=== PATIENT | female | born 1930 | race Caucasian/White ===

== ENCOUNTER 2016-07-19 17:38 | Inpatient (IN) | payer OTHER ==
[~2016-07-19] VITALS: Ht 167.6 cm; Wt 86.2 kg
--- NOTE | 2016-07-19 18:08 | ED DYSPNEA/ASTHMA COMPLAINT ---
History of Present Illness General Chief Complaint: Upper Respiratory Sx/Fever Stated Complaint: COUGHING, WALDRON, FEVER X1WEEK, REQUESTING CHEST XRAY Source: patient, family, old records Exam Limitations: no limitations Allergies Coded Allergies: NO KNOWN ALLERGIES (11/27/10) Triage Note: PT TO ED FOR "BRONCHITIS" FOR THE PAST WEEK, C/O NON-PRODUCTIVE COUGH, SUBJECTIVE FEVER AND RUNNY NOSE. Triage Nurses Notes Reviewed? yes Onset: Gradual Duration: week(s): (1), constant Timing: recent history Severity: mild Activities at Onset: none Prior Episodes/Possible Cause: occasional episodes Associated Symptoms: cough HPI: 85 Year old female with history of copd hypertension presents to the ER for evaluation complaining of a cough for the past 7 days intermittent wheezing. She is not on home O2. She denies fevers however reports to subjective chills. No chest pain no dizziness lightheadedness. Positive sick contact with similar symptoms. She was placed on Levaquin last week by Dr. Ramos however her cough persists. She states was initially productive of green sputum however is nonproductive now no abdominal pain nausea vomiting or diarrhea. No modifying factors or associated symptoms (CATHI MORFIN) Reconcile Medications Albuterol Sulfate (Proair Hfa) 90 MCG HFA.AER.AD 2 PUF INH Q4-6 PRN PRN copd Amlodipine Besylate 5 MG TABLET 1 TAB PO DAILY HIGH BP (Reported) Budesonide/Formoterol Fumarate (Symbicort 160-4.5 Mcg Inhaler) 160 MCG-4.5 MCG/ ACTUATION HFA.AER.AD 2 PUF INH BID copd Cefuroxime Axetil (Cefuroxime) 250 MG TABLET 1 TAB PO Q12 bronchitis Codeine Phosphate/Guaifenesi (Guaifenesin AC Cough Syrup) 10 MG-100 MG/5 ML LIQUID 10 ML PO Q6P PRN COUGH Lansoprazole 30 MG CAPSULE. 1 CAP PO DAILY GERD (Reported) Lisinopril 40 MG TABLET 1 TAB PO DAILY HIGH BP (Reported) Prednisone 10 MG TABLET 1 TAB PO SI copd take 4pills for 2days 3pills for 2days 2pills for 2days take 1pill for 2days then stop prednisone Tiotropium Clovis (Spiriva) 18 MCG CAP.W.DEV 1 CAP INH DAILY copd (KAREN ORTEGA) Vital Signs & Intake/Output Vital Signs & Intake/Output ED Intake and Output 07/24 0000 07/23 1200 Intake Total 500 200 Output Total Balance 500 200 Intake, Oral 500 200 Number 1 Bowel Movements Patient 190 lb Weight Past History Travel History Traveled to [place] past 21 day No Medical History Any Pertinent Medical History? 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 No (CATHI MORFIN) Review of Systems Review of Systems Constitutional: Reports: see HPI. All Other Systems: Reviewed and Negative Comments Review of systems: See HPI, All other systems negative. Constitutional, no chills no fever, no malaise HEENT: no sore throat congestion Cardiovascular: No chest pain , no palpitation Skin: no rashes, no change in skin Respiratory: No dyspnea cough no sputum GI: No nausea no vomiting, no diarrhea, : No dysuria Muscle skeletal: No joint pain, no back pain, no neck pain, Neurologic: No numbness no headache Psych: No stress Heme/endocrine: No bruising Immunology: No lymphadenopathy (CATHI MORFIN) Physical Exam Physical Exam General Appearance: well developed/nourished, alert, awake Respiratory: normal breath sounds Comments: Well-developed well-nourished patient in no apparent distress. Head/Face: Atraumatic, no maxillary/frontal sinus tenderness, no facial swelling Eyes: PERRL, EOMI, Ear:External auditory canal and Tympanic membranes clear, no erythema, no FB. Nose: atraumatic.Normal inspection Throat: Moist mucous membranes.Pharynx normal. No pharyngeal erythema/exudate seen. No stridor/drooling or assymetry. No swelling or edema. Neck: Supple, no lymphadenopathy, FROM Back: FROM Cardiovascular: Regular rate and rhythms no murmurs rubs Respiratory: Chest nontender.There were no bony deformities, no asymmetry. No respiratory distress. Patient speaking in full complete sentences. Breath sounds clear to auscultation bilaterally: NO W/R/R Extremities: full range of motion Neuro: awake, alert, and oriented to person, place and time. There were no obvious focal neurologic abnormalities. Skin: Warm & dry;No appreciable rash on exposed skin Psych: Mood affect normal, normal memory normal judgment. Core Measures ACS in differential dx? No Severe Sepsis Present: No Septic Shock Present: No (CATHI MORFIN) Progress Differential Diagnosis: AMI, bronchitis, costochondritis, CHF, COPD, musculoskeletal pain, pericarditis, pulmonary embolism, pneumonia, pneumothorax, unstable angina Diagnostic Imaging: Viewed by Me: Radiology Read. Discussed w/RAD: Radiology Read. Initial ED EKG: none Hand-Off Endorsed To: KAREN ORTEGA Endorsed Time: 1856 Pending: Xray (CATHI MORFIN) Initial ED EKG: normal sinus rhythm, rate (99), RBBB, nonspecific ST T wave chg (KAREN ORTEGA) Plan of Care: Orders Procedure Date/time Status Regular Diet 07/20 B Active TROPONIN LEVEL 07/20 0830 Active EKG 07/20 0830 Active CBC WITHOUT DIFFERENTIAL 07/20 0600 Complete BASIC ELECTROLYTES PLUS BUN&CR 07/20 0600 Complete TROPONIN LEVEL 07/20 0230 Complete EKG 07/20 0230 Active Teach/Educate 07/20 0135 Active Pain Treatment and Response 07/20 0135 Active Nutritional Intake, Monitor 07/20 0135 Active Isolation 07/20 0135 Active Patient Care Conference 07/20 0135 Active Activity/Ambulation 07/20 0135 Active Code Status 07/20 0045 Active US-RENAL/KIDNEY 07/20 0044 Active RAPID VIRAL INFLUENZA A 07/19 2344 Complete CULTURE,URINE 07/19 2344 Active LOWER RESPIRATORY CULTURE 07/19 2344 Active BLOOD CULTURE 07/19 2344 Active Misc Message 07/19 2338 Active ED Holding Orders 07/19 2338 Active EKG 07/19 2338 Active Code Status 07/19 2338 Complete URINALYSIS 07/19 2305 Complete TRC EVALUATION (GEN) 07/19 2302 Active Pathway - chart 07/19 230 Active House Staff 07/19 2302 Active Patient Data 07/19 230 Active Admit to inpatient 07/19 2222 Active Patient Data 07/19 2159 Active TROPONIN LEVEL 07/19 2001 Complete COMPREHENSIVE METABOLIC PANEL 07/19 2001 Complete CBC WITHOUT DIFFERENTIAL 07/19 2001 Complete EKG 07/19 2001 Active VTE Mechanical Prophylaxis 07/19 UNK Active Vital Signs 07/19 UNK Active MISTAKE 07/19 UNK Active Telemetry/Career Services Coordinator 07/19 UNK Active Intake & Output 07/19 UNK Active Current Medications Sig/Haroon Start time Last Medication Dose Stop Time Status Admin Azithromycin 500 MG DAILY 07/20 1000 AC (Zithromax) Sodium Chloride 250 ML (Normal Saline 0.9%) Enoxaparin Sodium 30 MG DAILY 07/20 1000 AC (Lovenox) Methylprednisolone 40 MG Q12 07/20 1000 AC (Solumedrol) Acetaminophen 650 MG Q6P PRN 07/19 2300 AC (Tylenol) Acetaminophen 1,000 MG Q6P PRN 07/19 2300 AC (Ofirmev) Morphine Sulfate 0.5 MG Q4P PRN 07/19 2300 AC (Morphine) Laboratory Tests 07/20/16 0255: Troponin I < 0.01 07/20/16 0255: Anion Gap 13, Estimated GFR > 60, BUN/Creatinine Ratio 22.9, CBC w Diff NO MAN DIFF REQ, RBC 4.66, MCV 83.4, MCH 28.1, RDW 14.9 H, MPV 8.4, Gran % 92.7 H, Lymphocytes % 6.8 L, Monocytes % 0.4 L, Eosinophils % 0.1, Basophils % 0 L, Absolute Granulocytes 7.8 H, Absolute Lymphocytes 0.6 L, Absolute Monocytes 0 L, Absolute Eosinophils 0, Absolute Basophils 0, PUBS MCHC 33.7 07/19/16 2323: Urinalysis LIGHT H, Urine Color YEL, Urine Clarity HAZY H, Urine pH 6.0, Ur Specific Robinson >= 1.030, Urine Protein NEG, Urine Ketones NEG, Urine Nitrite NEG, Urine Bilirubin NEG, Urine Urobilinogen 0.2, Ur Leukocyte Esterase NEG, Ur Microscopic SEDIMENT EXAMINED, Urine RBC 1-3, Urine WBC 1-3 H, Ur Epithelial Cells MOD H, Urine Bacteria FEW H, Urine Mucus MOD H, Urine Hemoglobin NEG, Urine Glucose NEG 07/19/162039: Anion Gap 12, Estimated GFR > 60, BUN/Creatinine Ratio 21.3, Glucose 111 H, Calcium 9.4, Total Bilirubin 0.5, AST 24, ALT 36, Alkaline Phosphatase 87, Troponin I < 0.01, Total Protein 7.4, Albumin 4.4, Globulin 3.0, Albumin/ Globulin Ratio 1.5, CBC w Diff NO MAN DIFF REQ, RBC 4.80, MCV 84.1, MCH 28.3, RDW 14.7 H, MPV 8.3, Gran % 63.7, Lymphocytes % 27.3, Monocytes % 6.4, Eosinophils % 2.1, Basophils % 0.5, Absolute Granulocytes 5.8, Absolute Lymphocytes 2.5, Absolute Monocytes 0.6, Absolute Eosinophils 0.2, Absolute Basophils 0, PUBS MCHC 33.7 Microbiology 07/20 025 BLOOD: Blood Culture - RECD 07/20 254 BLOOD: Blood Culture - RECD 07/20 003 NASOPHARYN: Influenza Virus A & B Rapid Smear - COMP 07/20 2343 LOWER RESP: Respiratory Culture - COLB 07/20 2343 LOWER RESP: Gram Stain - COLB 07/19 232 URINE ROUT: Urine Culture - RECD PT is declining all treatments other then xray including labs. case d/w dr fredy Kwon ordered CASE D.W AND SIGNED OUT TO SANDHYA RADER PENDING XRAY PATIENT: GODWIN AKERS PRESENT AGE: 85 PATIENT ACCOUNT NO: [id number] : 32 LOCATION: [facility] ORDERING PHYSICIAN: CATHI ARTHUR SERVICE DATE: 07/19/16 EXAM TYPE: RAD - XRY-CHEST XRAY, PA AND LATERAL EXAMINATION: XR CHEST CLINICAL INFORMATION: Cough, pneumonia. COMPARISON: Prior chest December 2015. TECHNIQUE: Two views of the chest were obtained. FINDINGS: Minimal bibasilar opacities most likely reflects atelectasis. Lungs otherwise clear. Minimal apical pleural thickening unchanged. The cardiac silhouette, mediastinum and pulmonary vascularity are normal. Bone and soft tissues, unremarkable. IMPRESSION: 1. No acute disease. 2. Bibasilar linear opacities likely atelectasis. 3. Biapical pleural scarring, unchanged. DICTATED BY: NAEEM GALLOWAY MD DATE/TIME DICTATED:07/19/161840 HEAD PAPER TESTER:CISCO DATE/TIME TRANSCRIBED:07/19/161840 CONFIDENTIAL, DO NOT COPY WITHOUT APPROPRIATE AUTHORIZATION. <Electronically signed in Other Vendor System> SIGNED BY: NAEEM GALLOWAY MD 07/19 (CATHI MORFIN) Departure Departure Condition: Stable Referrals: KARL SHORT,VILLA Vaca (PCP/Family) Additional Instructions: CONTINUE THE LEVAQUIN. TAKE THE MEDROL DOSE JESUS MANUEL YOU HAVE AT HOME. FOLLOW UP WITH DR BARAJAS THIS WEEK. RETURN AT ANYTIME SOONER IF YOUR SYMPTOMS WORSEN, YOU DEVELOP WORSENING FEVER, CHILLS DESPITE MEDICATION, SHORTNESS OF BREATH OR ANY OTHER CONCERNS Departure Forms: Customer Survey General Discharge Information (CATHI MORFIN) Departure Disposition: STILL A PATIENT Clinical Impression Primary Impression: COPD exacerbation Secondary Impressions: Acute electrocardiogram changes, Hypoxia Prescriptions: Current Visit Scripts Cefuroxime Axetil (Cefuroxime) 1 TAB PO Q12 #4 Prednisone 1 TAB PO SI #20 TAB take 4pills for 2days 3pills for 2days 2pills for 2days take 1pill for 2days then stop prednisone Budesonide/Formoterol Fumarate (Symbicort 160-4.5 Mcg Inhaler) 2 PUF INH BID #1 INHAL Tiotropium Clovis (Spiriva) 1 CAP INH DAILY #30 CAP Albuterol Sulfate (Proair Hfa) 2 PUF INH Q4-6 PRN PRN copd #1 INHAL Codeine Phosphate/Guaifenesi (Guaifenesin AC Cough Syrup) 10 ML PO Q6P PRN COUGH #1 Admission Note Spoke With: VILLA BARAJAS MD. Documentation of Exam: Documentation of any treatments & extenuating circumstances including Concerns Regarding Discharge (functional status, medication knowledge or non-compliance, living conditions, etc.) that warrant an admission rather than observation: Patient has a new right bundle-branch block. O2 saturation in high 80s on room air. Short of breath still. Patient will require serial breathing treatments. Supplemental oxygen. IV steroids. Cardiac telemetry. Cardiac consultation. Pulmonary consult. (KAREN ORTEGA) PA/MANAGER OF CREATIVE SERVICES Co-Sign Statement Statement: ED Attending supervision documentation- [x] I saw and evaluated the patient. I have also reviewed all the pertinent lab results and diagnostic results. I agree with the findings and the plan of care as documented in the PA's/MANAGER OF CREATIVE SERVICES's documentation. Worsening shortness of breath over the past week despite antibiotics. [] I have reviewed the ED Record and agree with the PA's/MANAGER OF CREATIVE SERVICES's documentation. [] Additions or exceptions (if any) to the PAs/MANAGER OF CREATIVE SERVICES's note and plan are summarized below: [] (JOSUE SHORT,DAVEY Garcia) Critical Care Note Critical Care Note Critical Care Time: non-applicable (LIT ARTHUR,CATHI)
--- NOTE | 2016-07-19 19:07 | RADIOLOGY REPORT ---
EXAMINATION: XR CHEST CLINICAL INFORMATION: Cough, pneumonia. COMPARISON: Prior chest December 2015. TECHNIQUE: Two views of the chest were obtained. FINDINGS: Minimal bibasilar opacities most likely reflects atelectasis. Lungs otherwise clear. Minimal apical pleural thickening unchanged. The cardiac silhouette, mediastinum and pulmonary vascularity are normal. Bone and soft tissues, unremarkable. IMPRESSION: 1. No acute disease. 2. Bibasilar linear opacities likely atelectasis. 3. Biapical pleural scarring, unchanged.
[2016-07-19 20:50] LABS: ABSOLUTE BASOPHIL COUNT 0 /CUMM (0.0-0.2); ABSOLUTE EOSINOPHIL COUNT 0.2 /CUMM (0.0-0.7); ABSOLUTE GRANULOCYTE CT 5.8 /CUMM (1.4-6.5); ABSOLUTE LYMPH COUNT 2.5 /CUMM (1.2-3.4); ABSOLUTE MONOCYTE COUNT 0.6 /CUMM (0.10-0.60); BASOPHIL % 0.5 % (0.0-2.0); EOSINOPHIL % 2.1 % (0-5); GRANULOCYTE % 63.7 % (42.2-75.2); HEMATOCRIT 40.4 % (37-47); MEAN CORPUSCULAR HGB 28.3 PG (27.0-31.0); MEAN CORPUSCULAR HGB CONC 33.7 G/DL (33.0-37.0); MEAN CORPUSCULAR VOLUME 84.1 FL (81.0-99.0); MEAN PLATELET VOLUME 8.3 FL (7.4-10.4); PLATELET COUNT 199 /CUMM (130-400); RBC DISTRIBUTION WIDTH 14.7 % (11.5-14.5); WHITE BLOOD CELL COUNT 9.1 /CUMM (4.8-10.8)
--- NOTE | 2016-07-19 23:39 | History & Physical ---
BEE SHORT,[facility] 07/19/16 7308: General Information and HPI MD Statement: I have seen and personally examined GODWIN AKERS and documented this H&P. The patient is a 85 year old F who presented with a patient stated chief complaint of [coughing, fever and chills, malaise]. Source of Information: patient Exam Limitations: no limitations History of Present Illness: Patient is a 85 year-old lady with PMH of HTN, emphysema, arthritis, GERD who has come to the ED after 7 days of constant and worsening upper respiratory symptoms and weakness. Patient was in her usual state until 7 days ago on Monday when she started to have coughing, wheezing and runny nose, as she said, 'like a faucet'. Coughing became worse the next day and the patient also started to experience fever and chills and generalized weakness and malaise, to the extent that she had a hard time getting up from the chair. On Monday (07/15/16) patient went to Dr. Carlson office and was diagnosed with bronchitis and started on Levaquin and was recommended to come to the ED if symptoms did not improve. Patient called Dr. Carlson office today as her symptoms had gotten worse, she was advised to come to the ED and get a CXR. Patient reports dizziness off and on, myalgia, excessive coughing and sputum production (with greenish phlegm), denies any sick contacts, has received flu shot as well as pneumovax this year. Patient always has SOB on exertion, which is not worsened, denies SOB at rest, denies orthopnea and lower extremity swelling. does not take oxygen at home, was a former smoker and quit in 1997 ( smoke for 40 years up to 2-3 packs/day). She follows up with Dr. Christensen for her emphysema and reports that she was started on Breo recently. Does not take Spiriva any more. Denies chest pain, palpitation, headache, vision changes, denies changes in bowel habits or abdominal pain, denies urine changes, has urinary urgency and follow up with Dr. Hendrix, she is off of any medication for her overactive bladder. Patient generally does not drink much water but drinks a lot of coffee and tea. She also sees Dr. Mosley, last time about a year ago and a stress test was performed and was normal. She also sees Dr. Gonzalez, GI, Dr. Mondragon (for a femoral fx), Dr. Pérez and [place] for osteoarthritis and back pain. 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 Ambulation: cane Review of Systems Review of Systems Constitutional: Reports: chills, fever, weakness. EENTM: Reports: nasal congestion. Denies: visual changes. Cardiovascular: Denies: chest pain, palpitations, peripheral edema. Respiratory: Reports: cough, short of breath, sputum production, wheezing. Denies: orthopnea , stridor. GI: Denies: abdominal pain, diarrhea, nausea, bloody stool, changes in stool, vomiting. Genitourinary: Reports: frequency, urgency. Denies: dysuria. Musculoskeletal: Reports: back pain, joint pain. Skin: Reports: no symptoms. Neurological/Psychological: Reports: no symptoms. Hematologic/Endocrine: Reports: no symptoms. Exam & Diagnostic Data Last 24 Hrs of Vital Signs/I&O Vital Signs Date Time Temp Pulse Resp B/P B/P Pulse O2 O2 Flow FiO2 Mean Ox Delivery Rate 07/20 0038 96.4 89 18 128/65 90 Nasal 5.0L Cannula 07/19 2032 97.9 105 16 174/78 96 Nasal 2.0L Cannula 07/19 1915 90 07/19 1800 98.8 103 20 147/86 92 Room Air Intake & Output 07/20 0800 07/20 0000 07/19 1600 Intake Total Output Total Balance Patient 86.183 kg Weight Weight Reported by Patient Measurement Method Physical Exam General Appearance Alert, Oriented X3, Cooperative, No Acute Distress Skin No Significant Lesion Skin Temp/Moisture Exam: Warm/Dry Sepsis Skin Exam (color): Normal for Ethnicity HEENT Atraumatic, EOMI, Mucous Membr. moist/pink Neck Supple Cardiovascular Regular Rate, Normal S1, Normal S2, No Murmurs Lungs Normal Air Movement, decreased breath sounds, no wheezing or rhonchi appreciated Abdomen Normal Bowel Sounds, Soft, there is LUQ, suprapubic, RUQ and RLQ pain and tenderness, villalobos sign is negative, there is left side CVA tenderness Neurological Normal Speech, Strength at 5/5 X4 Ext, Normal Tone, Sensation Intact, Cranial Nerves 3-12 NL Extremities No Edema, Normal Pulses Vascular Normal Pulses, Pulses Symmetrical Last 24 Hrs of Labs/Bayron: Laboratory Tests 07/19/163: Urinalysis LIGHT H, Urine Color YEL, Urine Clarity HAZY H, Urine pH 6.0, Ur Specific [place] >= 1.030, Urine Protein NEG, Urine Ketones NEG, Urine Nitrite NEG, Urine Bilirubin NEG, Urine Urobilinogen 0.2, Ur Leukocyte Esterase NEG, Ur Microscopic SEDIMENT EXAMINED, Urine RBC 1-3, Urine WBC 1-3 H, Ur Epithelial Cells MOD H, Urine Bacteria FEW H, Urine Mucus MOD H, Urine Hemoglobin NEG, Urine Glucose NEG 07/19/162039: Anion Gap 12, Estimated GFR > 60, BUN/Creatinine Ratio 21.3, Glucose 111 H, Calcium 9.4, Total Bilirubin 0.5, AST 24, ALT 36, Alkaline Phosphatase 87, Troponin I < 0.01, Total Protein 7.4, Albumin 4.4, Globulin 3.0, Albumin/ Globulin Ratio 1.5, CBC w Diff NO MAN DIFF REQ, RBC 4.80, MCV 84.1, MCH 28.3, RDW 14.7 H, MPV 8.3, Gran % 63.7, Lymphocytes % 27.3, Monocytes % 6.4, Eosinophils % 2.1, Basophils % 0.5, Absolute Granulocytes 5.8, Absolute Lymphocytes 2.5, Absolute Monocytes 0.6, Absolute Eosinophils 0.2, Absolute Basophils 0, PUBS MCHC 33.7 Microbiology 07/20 0035 NASOPHARYN: Influenza Virus A & B Rapid Smear - COMP 07/20 2343 LOWER RESP: Respiratory Culture - ORD 07/20 2343 LOWER RESP: Gram Stain - ORD 05/16 2344 BLOOD: Blood Culture - ORD 07/19 2344 BLOOD: Blood Culture - ORD 07/19 2323 URINE ROUT: Urine Culture - RECD Diagnostic Data EKG Results sinus tachycardia, new right bundle branch block, T wave inversions in precordial leads (V2-V6) CXR Results SERVICE DATE: 07/19/16 EXAM TYPE: RAD - XRY-CHEST XRAY, PA AND LATERAL EXAMINATION: XR CHEST CLINICAL INFORMATION: Cough, pneumonia. COMPARISON: Prior chest December 2015. TECHNIQUE: Two views of the chest were obtained. FINDINGS: Minimal bibasilar opacities most likely reflects atelectasis. Lungs otherwise clear. Minimal apical pleural thickening unchanged. The cardiac silhouette, mediastinum and pulmonary vascularity are normal. Bone and soft tissues, unremarkable. IMPRESSION: 1. No acute disease. 2. Bibasilar linear opacities likely atelectasis. 3. Biapical pleural scarring, unchanged. DICTATED BY: NAEEM GALLOWAY MD DATE/TIME DICTATED:07/19/161840 RICE DRYER MECHANIC:CISCO DATE/TIME TRANSCRIBED:07/19/161840 Assessment/Plan Assessment: Patient is a 85 year-old lady with PMH of HTN, emphysema, arthritis, GERD who has come to the ED after 7 days of constant, worsening upper respiratory symptoms and generalized weakness. Patient is found to have some new findings in the EKG including new RBBB and T wave inversions in precordial leads (V2-V6). Patient is admitted to telemetry for close monitoring and to rule out arrhythmias. CXR: No acute disease. Bibasilar linear opacities likely atelectasis. Biapical pleural scarring. Lab: CBC and electrolytes within normal limits, troponin <0.01 Problem list and plan: Upper respiratory tract infection CXR Bibasilar linear opacities likely atelectasis. Flue test negative for Influenza A&B. No fever and leukocytosis. Patient has a history of emphysema, not on home O2 (takes Breo at home). * O2 supplementation as needed to keep SO2>92% * TRC/Nebs * IV solumedrol 40 mg Q12 * Azithromycin 500 mg IV * Sputum culture and blood culture New EKG changes EKG revealed new RBBB, denies any chest pain and palpitation, troponin <0.01 * Serial troponin and EKG * Continuous EKG monitoring * Consider cardiology consultation Possible UTI/kidney stone Has CVA tenderness, UA is negative, currently afebrile, normal WBC count * Urine culture sent, will follow * Kidney ultrasound ordered, will follow History of HTN * continue lisinopril, amlodipine History of GERD * continue lansoprazole mild pain pathway DVT px Lovenox SC Diet regular FC As Ranked By This Provider Problem List: 1. GERD 2. Emphysema of lung 3. Essential hypertension 4. Osteoarthritis 5. Bronchitis Core Measures/Miscellaneous Acute Coronary Syndrome ACS Diagnosis: No Cerebrovascular Accident CVA/TIA Diagnosis: No Congestive Heart Failure CHF Diagnosis: No Venous Thromboembolism VTE Risk Factors: Acute medical illness, Age > 40 No [facility] VTE prophylaxis d/t: VTE low risk, No contraindications No VTE Pharm Prophylaxis d/t: VTE low risk, No contraindications VTE Diagnosis: No VTE Type: NONE VTE Confirmed by (Test): NONE Severe Sepsis Severe Sepsis Present: No Septic Shock Septic Shock Present: No Miscellaneous Documentation Attending Case [facility]ed [facility] Primary Care Physician: VILLA CARLSON MD Patient sees these Specialists Dr. Dimitri Black Level of Patient Care: Telemetry VIOLETASinanTINO 07/19/16 2340: General Information and HPI MD Statement: I have seen and personally examined GODWIN AKERS and documented this H&P. The patient is a 85 year old F who presented with a patient stated chief complaint of [COUGH,COLD,URI]. Source of Information: patient Exam Limitations: no limitations Allergies/Medications Home Med list Albuterol Sulfate (Proair Hfa) 90 MCG HFA.AER.AD 2 PUF INH Q4-6 PRN PRN copd Amlodipine Besylate 5 MG TABLET 1 TAB PO DAILY HIGH BP (Reported) Budesonide/Formoterol Fumarate (Symbicort 160-4.5 Mcg Inhaler) 160 MCG-4.5 MCG/ ACTUATION HFA.AER.AD 2 PUF INH BID copd Cefuroxime Axetil (Cefuroxime) 250 MG TABLET 1 TAB PO Q12 bronchitis Codeine Phosphate/Guaifenesi (Guaifenesin AC Cough Syrup) 10 MG-100 MG/5 ML LIQUID 10 ML PO Q6P PRN COUGH Lansoprazole 30 MG CAPSULE. 1 CAP PO DAILY GERD (Reported) Lisinopril 40 MG TABLET 1 TAB PO DAILY HIGH BP (Reported) Prednisone 10 MG TABLET 1 TAB PO SI copd take 4pills for 2days 3pills for 2days 2pills for 2days take 1pill for 2days then stop prednisone Tiotropium [place] (Spiriva) 18 MCG CAP.W.DEV 1 CAP INH DAILY copd Past Family/Social History Psychosocial History Where do you live? Home Core Measures/Miscellaneous Acute Coronary Syndrome ACS Diagnosis: No Cerebrovascular Accident CVA/TIA Diagnosis: No Congestive Heart Failure CHF Diagnosis: No Venous Thromboembolism VTE Risk Factors: Age > 40 No [facility] VTE prophylaxis d/t: No contraindications No VTE Pharm Prophylaxis d/t: No contraindications VTE Diagnosis: No VTE Type: NONE VTE Confirmed by (Test): NONE Miscellaneous Documentation Attending Case Discussed With: DR MILES Primary Care Physician: KARL SHORT,VILLA [place] Resident Review Statement Resident Statement: examined this patient, discussed with process engineering intern, agreed with process engineering intern Other Findings: This is a 85-year-old female previous smoker, nonalcoholic, no illicit drug use with past medical history of hypertension, hyperlipidemia, COPD (emphysema) not on home oxygen, GERD, osteoarthritis,?RA,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 The the patient was doing fine when one week prior to admission she started experiencing productive cough with greenish sputum, subjective headaches on and off, dizziness and lightheadedness along with chills and myalgia. She thought that this might improve on its own, she tried taking some [id number] Tylenol however the symptoms continued to worsen and therefore she saw her primary care Dr. Lemons's who prescribed her seven days of levofloxacin on , continued to take the antibiotic as prescribed however her symptoms did not improve and she continued to feel worse, before she called Dr. Lemons's office again and she was asked to come to the emergency department for a chest x-ray. She denied any nausea, vomiting, diarrhea, abdominal pain, she does have urinary frequency and has hyperactive bladder for which she has been seeing Dr. Hendrix however denied any urinary complaints other than that. She follows up with Dr. Christensen as her sap senior developer, Dr. Black as a investigative analyst and she also sees Dr. Gerard pérez. At the emergency department she was noted to have Tmax of 97.9, pulse of 103, respiration of 16-20, her blood pressure was systolic ranging from 147-174, diastolic 78-86. PE : She was alert orientated to time place and person, not in any acute distress. HEENT atraumatic, no sinus tenderness, no facial swelling, but equal and reactive to the right. Throat : essentially had normal pharynx no erythema or exudate noted, moist mucous membranes. CVS : regular rate and rhythm no murmur. RS : bilateral air entry equal, no adventitious sounds. Pa : Soft, mild tenderness noted in the right quadrant on deep palpation, positive CVA tenderness on the left side, I'll sounds present. Extremities: noncyanotic no edema or cyanosis. Neurologic: Nonfocal. Skin : warm and dry, no rash ulcer or erythema. Relevant Labs : Count of 9.1, H/H of 13.6/40.4, platelets 199. lytes within normal limit, normal kidney functions, normal liver functions, troponin less than 0.01. CXR did not show any acute disease, by basilar linear opacities likely atelectasis, previous pleural scarring present and unchanged from previous x- ray. EKG showed normal sinus rhythm, sinus tachycardia at rate of 109, UT of 164, QTC of 475, new right bundle branch block not present on the previous EKG. She received one time of 125 mg of Solu-Medrol at the emergency department 1 dose of IV Zithromax and, she was placed on 2 L of nasal cannula at home she does not use oxygen. Patient failed Levaquin as OP and symptoms did not improve. Problem list along with assessment and plan. #1 upper respiratory tract-like infection. #2 new right bundle branch block. #3 positive CVA tenderness, negative UA. #4 history of hypertension. #5 history of hyperlipidemia. #6 history of GERD #7 H/o COPD Her URI like symptoms looks to be viral in origin, the secretions are more watery, she does have mild sputum production however it has reduced from before it's green in color, she does not sound very congested in her chest.She does have underlying emphysema and she becomes breathless even by climbing few steps which is her baseline, there is no worsening of shortness of breath from her baseline however due to underlying COPD we will continue IV Solu-Medrol 40 every 12. * Continue azithromycin for its anti-inflammatory effect. * Continue monitor vitals, continue to follow sputum cultures blood cultures and urine cultures. * Patient was complaining of CVA tenderness. * UA is not positive, however we will get a kidney ultrasound in a.m. to rule out any infection. * EKG revealed new right bundle been parched, initial set of troponin was negative, patient does not have any chest pain or any palpitations. * we will trend ekg and troponin * Continue lisinopril and amlodipine for her hypertension from a.m. * Continue lansoprazole for GERd * Ct azithromycin for its anti-inflammatory effect. * Follow rapid flu. * Ct TRC/ Nebulisations. FC Mild, moderate and severe pain pathway Regular diet. DVt px lovenox. GINGER SHORT,KELLY 07/20/16 0956: Attending MD Review Statement Attending Statement Attending MD Statement: examined this patient, discuss w/resident/PA/BUS DRIVER/MONITOR, agreed w/resident/PA/BUS DRIVER/MONITOR, reviewed EMR data (avail)
[2016-07-19] MEDS ORDERED: LANSOPRAZOLE30 M2 PO (23:48)
[2016-07-19] MEDS ORDERED: LISINOPRIL40 M1 PO (23:48)
[2016-07-19] MEDS ORDERED: AMLODIPINE BESYL5 M1 PO (23:49)
[2016-07-20 01:16] VITALS: BP 132/70
[2016-07-20 03:15] LABS: ABSOLUTE BASOPHIL COUNT 0 /CUMM (0.0-0.2); ABSOLUTE EOSINOPHIL COUNT 0 /CUMM (0.0-0.7); ABSOLUTE GRANULOCYTE CT 7.8 /CUMM (1.4-6.5); ABSOLUTE LYMPH COUNT 0.6 /CUMM (1.2-3.4); ABSOLUTE MONOCYTE COUNT 0 /CUMM (0.10-0.60); BASOPHIL % 0 % (0.0-2.0); EOSINOPHIL % 0.1 % (0-5); GRANULOCYTE % 92.7 % (42.2-75.2); HEMATOCRIT 38.9 % (37-47); MEAN CORPUSCULAR HGB 28.1 PG (27.0-31.0); MEAN CORPUSCULAR HGB CONC 33.7 G/DL (33.0-37.0); MEAN CORPUSCULAR VOLUME 83.4 FL (81.0-99.0); MEAN PLATELET VOLUME 8.4 FL (7.4-10.4); PLATELET COUNT 194 /CUMM (130-400); RBC DISTRIBUTION WIDTH 14.9 % (11.5-14.5); RED BLOOD CELL CT 4.66 /CUMM (4.20-5.40); WHITE BLOOD CELL COUNT 8.4 /CUMM (4.8-10.8)
--- NOTE | 2016-07-20 06:58 | PN- Housestaff ---
Subjective Follow-up For: COPD exacerbation New onset RBBB Tele-Events Since Last Visit: NSR with rate in 80-90s Subjective: Patient seen and examined at bedside. Resting comfortably in chair. Alert, awake and oriented x 3. Endorses cough and shortness of breath but improving. Denies any chest pain, palpitations, lightheadedness, dizziness, abdominal pain, n/v/c/ d. No events reported overnight. Review of Systems Constitutional: Reports: see HPI, chills. Objective Last 24 Hrs of Vital Signs/I&O Vital Signs Date Time Temp Pulse Resp B/P B/P Pulse O2 O2 Flow FiO2 Mean Ox Delivery Rate 07/20 0800 98.7 96 20 138/84 94 Nasal 5.0L Cannula 07/20 0209 Nasal 5.0L Cannula 07/20 0116 97.2 98 18 132/70 94 Nasal Cannula 07/20 0038 96.4 89 18 128/65 90 Nasal 5.0L Cannula 07/19 2033 97.9 105 16 174/78 96 Nasal 2.0L Cannula 07/19 1915 90 07/19 1800 98.8 103 20 147/86 92 Room Air Intake & Output 07/20 1600 07/20 0800 07/20 0000 Intake Total Output Total Balance Patient 86.183 kg Weight Weight Reported by Patient Measurement Method Physical Exam General Appearance: Alert, Oriented X3, Cooperative, No Acute Distress Other Physical Findings: Skin No Significant Lesion Skin Temp/Moisture Exam: Warm/Dry Sepsis Skin Exam (color): Normal for Ethnicity HEENT Atraumatic, EOMI, Mucous Membr. moist/pink Neck Supple Cardiovascular Regular Rate, Normal S1, Normal S2, No Murmurs Lungs Normal Air Movement, decreased breath sounds, no wheezing or rhonchi appreciated Abdomen Normal Bowel Sounds, Soft, there is LUQ, suprapubic, RUQ and RLQ pain and tenderness, villalobos sign is negative, there is left side CVA tenderness Neurological Normal Speech, Strength at 5/5 X4 Ext, Normal Tone, Sensation Intact, Cranial Nerves 3-12 NL Extremities No Edema, Normal Pulses Vascular Normal Pulses, Pulses Symmetrical Current Medications: Current Medications Sig/Haroon Start time Last Medication Dose Route Stop Time Status Admin Acetaminophen 650 MG Q6P PRN 07/19 2300 AC PO Acetaminophen 1,000 MG Q6P PRN 07/19 2300 AC IV Albuterol Sulfate 3 ML ONCE ONE 07/19 2014 DC 07/19 INH 07/19 Albuterol Sulfate 3 ML ONCE ONE 07/19 184 DC 07/19 INH 07/19 1845 191 Azithromycin 500 MG 2200 07/20 2200 AC Sodium Chloride 250 ML IV Azithromycin 500 MG DAILY 07/20 1000 DC Sodium Chloride 250 ML IV Azithromycin 500 MG ONCE ONE 07/19 2130 DC 07/19 PO 07/19 2130 2226 Enoxaparin Sodium 30 MG DAILY 07/20 1000 AC 07/20 SC 0927 Ipratropium [place] 2.5 ML ONCE ONE 07/19 1845 DC 07/19 INH 07/19 1845 191 Methylprednisolone 40 MG Q12 07/20 1000 AC 07/20 IV 0927 Methylprednisolone 0 .STK-MED ONE 07/19 2048 DC .ROUTE Methylprednisolone 125 MG ONCE ONE 07/19 2014 DC 07/19 IV 07/19 Morphine Sulfate 0.5 MG Q4P PRN 07/19 230 AC IV Last 24 Hrs of Lab/Bayron Results Last 24 Hrs of Labs/Mics: Laboratory Tests 07/20/16 1025: Troponin I Pending 07/20/16 0255: Troponin I < 0.01 07/20/16 0255: Anion Gap 13, Estimated GFR > 60, BUN/Creatinine Ratio 22.9, CBC w Diff NO MAN DIFF REQ, RBC 4.66, MCV 83.4, MCH 28.1, RDW 14.9 H, MPV 8.4, Gran % 92.7 H, Lymphocytes % 6.8 L, Monocytes % 0.4 L, Eosinophils % 0.1, Basophils % 0 L, Absolute Granulocytes 7.8 H, Absolute Lymphocytes 0.6 L, Absolute Monocytes 0 L, Absolute Eosinophils 0, Absolute Basophils 0, PUBS MCHC 33.7 07/19/16 2323: Urinalysis LIGHT H, Urine Color YEL, Urine Clarity HAZY H, Urine pH 6.0, Ur Specific [place] >= 1.030, Urine Protein NEG, Urine Ketones NEG, Urine Nitrite NEG, Urine Bilirubin NEG, Urine Urobilinogen 0.2, Ur Leukocyte Esterase NEG, Ur Microscopic SEDIMENT EXAMINED, Urine RBC 1-3, Urine WBC 1-3 H, Ur Epithelial Cells MOD H, Urine Bacteria FEW H, Urine Mucus MOD H, Urine Hemoglobin NEG, Urine Glucose NEG 07/19/162039: Anion Gap 12, Estimated GFR > 60, BUN/Creatinine Ratio 21.3, Glucose 111 H, Calcium 9.4, Total Bilirubin 0.5, AST 24, ALT 36, Alkaline Phosphatase 87, Troponin I < 0.01, Total Protein 7.4, Albumin 4.4, Globulin 3.0, Albumin/ Globulin Ratio 1.5, CBC w Diff NO MAN DIFF REQ, RBC 4.80, MCV 84.1, MCH 28.3, RDW 14.7 H, MPV 8.3, Gran % 63.7, Lymphocytes % 27.3, Monocytes % 6.4, Eosinophils % 2.1, Basophils % 0.5, Absolute Granulocytes 5.8, Absolute Lymphocytes 2.5, Absolute Monocytes 0.6, Absolute Eosinophils 0.2, Absolute Basophils 0, PUBS MCHC 33.7 Microbiology 07/20 254 BLOOD: Blood Culture - RECD 07/20 254 BLOOD: Blood Culture - RECD 07/20 0035 NASOPHARYN: Influenza Virus A & B Rapid Smear - COMP 07/19 234 LOWER RESP: Respiratory Culture - COLB 07/20 2343 LOWER RESP: Gram Stain - COLB 07/19 2322 URINE ROUT: Urine Culture - RECD Assessment/Plan Assessment: Patient is a 85 year-old lady with PMH of HTN, emphysema, arthritis, GERD who has come to the ED after 7 days of constant, worsening upper respiratory symptoms and generalized weakness. Patient is found to have some new findings in the EKG including new RBBB and T wave inversions in precordial leads (V2-V6). Patient is admitted to telemetry for close monitoring and to rule out arrhythmias. # Acute hypoxic resp failure Most likely 2/2 COPD exacerbation. CXR Bibasilar linear opacities concernign for atelectasis. Flue test negative for Influenza A&B. No fever and leukocytosis. Patient has a history of emphysema, not on home O2 (takes Breo at home). Patient was satting below 90%, requiring upto 5 liters of oxygen on admission. * O2 supplementation as needed to keep SO2>92% * TRC/Nebs as needed * Cont IV solumedrol 40 mg Q12 * Cont Azithromycin 500 mg IV * Sputum culture and blood culture * CTA to r/o PE # New EKG changes EKG revealed new RBBB, denies any chest pain and palpitation, troponin <0.01 * Serial troponin and EKG * Continuous EKG monitoring * Appreciate cardio recs Possible UTI/kidney stone Has CVA tenderness, UA is negative, currently afebrile, normal WBC count * Urine culture sent, will follow * Kidney ultrasound - no signs of pyelonephritis History of HTN * continue lisinopril, amlodipine History of GERD * continue lansoprazole mild pain pathway DVT px Lovenox SC Diet regular FC Problem List: 1. COPD exacerbation 2. Bronchitis 3. Emphysema of lung 4. GERD 5. Essential hypertension Pain Ratin Pain Location: 0 Pain Goal: Remain pain free Pain Plan: Mild path Tomorrow's Labs & Rationales: None None
[2016-07-20 08:00] VITALS: BP 138/84
--- NOTE | 2016-07-20 09:45 | Admission Certification ---
Admission Certification Certification Statement - As attending physician, I certify that at the time of - admission, based on clinical presentation, severity of - symptoms, need for further diagnostic testing and - therapeutic interventions, and risk of adverse outcomes - without in-hospital treatment, in my clinical assessment, - this patient requires an acute hospital stay for a minimum - of two nights or longer. I have also considered psychsocial - factors such as support system, advanced age, financial - issues, cognitive issues, and failed out-patient treatments, - past re-admission history, safety of patient, and lack of - compliance as applicable. Specific rationale supporting this admission is: COPD exacerbation, abnormal EKG
--- NOTE | 2016-07-20 09:48 | ULTRASOUND REPORT ---
EXAMINATION: PORTABLE US RETROPERITONEAL COMPLETE (RENAL) CLINICAL INFORMATION: Positive left CVA tenderness.. COMPARISON: None TECHNIQUE: Real-time imaging of the kidneys and bladder. FINDINGS: RIGHT KIDNEY: 10.9 x 4.9 x 5.9 cm (SAG x AP x TRV). The kidney is normal in size, contour, and echogenicity. Renal cortical thickness is normal. There are multiple anechoic cyst. The upper pole anechoic cyst measures 4.5 x 4.1 x 4.0 cm. In midpole anechoic cyst with central septation measures 3.9 a 3.7 x 3.7 cm. A lower pole anechoic cyst measures 1.9 x 1.6 x 2.0 cm. There are no echogenic calculi or hydronephrosis. LEFT KIDNEY: 0.2 x 4.4 x 5.1 cm (SAG x AP x TRV). The kidney is normal in size, contour, and echogenicity. Renal cortical thickness is normal. There are several anechoic cysts. The upper pole anechoic cyst measures 3.5 x 2.7 x 3.2 cm. A midpole cyst measures 2.0 x 0.9 x 1.6 cm. A lower pole cyst measures 3.2 x 2.7 x 2.9 cm. BLADDER: Well-distended and normal. Bilateral ureteral jets are demonstrated. IMPRESSION: Bilateral renal cysts. A complex septated cyst is visualized in midpole right kidney. There are no echogenic calculi or hydronephrosis. Normal bilateral ureteral jets are seen in the bladder.
--- NOTE | 2016-07-20 09:55 | PN- Att Addend ---
Attending Addendum Attending Brief Note Patient complains of persistent difficulty breathing requiring high flow oxygen General Appearance: Alert, No Acute Distress Skin: Grossly normal HEENT: PEERLA Neck: Supple, No JVD Cardiovascular: Regular Rate, Normal S1, Normal S2, No Murmurs Lungs: Generalized coarse lung sounds Abdomen: Normal Bowel Sounds, Soft, No Tenderness Neurological: Normal Speech, Strength at 5/5 X4 Ext, Cranial Nerves 3-12 NL, Reflexes 2+ Extremities: No Clubbing, No Cyanosis, No Edema Vascular: Normal Pulses Assessment 85-year-old with history of hypertension, emphysema, arthritis, GERD presenting with shortness of breath and upper respiratory symptoms. She was seen by Dr. Johnson Carlson and was prescribed Levaquin for 7 days and she's completed 5 days of antibiotics. Chest x-ray unremarkable. Patient is hypoxic requiring 5 L of oxygen. We must rule out PE and also assess lung parenchyma for pneumonia with a CTA. She also has an abnormal EKG with T-wave inversions in anterior and septal leads including a new right bundle branch block. We will get cardiology evaluation and cycle troponins and also check echocardiogram. Plan Check CTA Continue Solu-Medrol Send sputum culture Monitor on telemetry and cycle troponins Pulmonary and cardiology evaluation Check echocardiogram. Blood cultures Continue other home medications DVT prophylaxis Current Medications Sig/Haroon Start time Last Medication Dose Route Stop Time Status Admin Acetaminophen 650 MG Q6P PRN 07/19 2300 AC PO Acetaminophen 1,000 MG Q6P PRN 07/19 2300 AC IV Albuterol Sulfate 3 ML ONCE ONE 07/19 2014 DC 07/19 INH 07/19 Albuterol Sulfate 3 ML ONCE ONE 07/19 184 DC 07/19 INH 07/19 1845 191 Azithromycin 500 MG 0 07/20 2199 AC Sodium Chloride 250 ML IV Azithromycin 500 MG DAILY 07/20 1000 DC Sodium Chloride 250 ML IV Azithromycin 500 MG ONCE ONE 07/190 DC 07/19 PO 07/19 2130 222 Enoxaparin Sodium 30 MG DAILY 07/20 1000 AC 07/20 SC 0927 Ipratropium [place] 2.5 ML ONCE ONE 07/19 1845 DC 07/19 INH 07/19 1845 191 Methylprednisolone 40 MG Q12 07/20 1000 AC 07/20 IV 0927 Methylprednisolone 0 .STK-MED ONE 07/19 2048 DC .ROUTE Methylprednisolone 125 MG ONCE ONE 07/19 2014 DC 07/19 IV 07/19 Morphine Sulfate 0.5 MG Q4P PRN 07/19 2299 AC IV Laboratory Tests 07/20 07/20 0255 0255 Chemistry Sodium (137 - 145 mmol/L) 144 Potassium (3.5 - 5.1 mmol/L) 4.1 Chloride (98 - 107 mmol/L) 109 H Carbon Dioxide (22 - 30 mmol/L) 22 Anion Gap (5 - 16) 13 BUN (7 - 17 mg/dL) 16 Creatinine (0.5 - 1.0 mg/dL) 0.7 Estimated GFR (>60 ml/min) > 60 BUN/Creatinine Ratio (7 - 25 %) 22.9 Troponin I (< 0.11 ng/ml) < 0.01 Hematology CBC w Diff NO MAN DIFF REQ WBC (4.8 - 10.8 /CUMM) 8.4 RBC (4.20 - 5.40 /CUMM) 4.66 Hgb (12.0 - 16.0 G/DL) 13.1 Hct (37 - 47 %) 38.9 MCV (81.0 - 99.0 FL) 83.4 MCH (27.0 - 31.0 PG) 28.1 RDW (11.5 - 14.5 %) 14.9 H Plt Count (130 - 400 /CUMM) 194 MPV (7.4 - 10.4 FL) 8.4 Gran % (42.2 - 75.2 %) 92.7 H Lymphocytes % (20.5 - 51.1 %) 6.8 L Monocytes % (1.7 - 9.3 %) 0.4 L Eosinophils % (0 - 5 %) 0.1 Basophils % (0.0 - 2.0 %) 0 L Absolute Granulocytes (1.4 - 6.5 /CUMM) 7.8 H Absolute Lymphocytes (1.2 - 3.4 /CUMM) 0.6 L Absolute Monocytes (0.10 - 0.60 /CUMM) 0 L Absolute Eosinophils (0.0 - 0.7 /CUMM) 0 Absolute Basophils (0.0 - 0.2 /CUMM) 0 PUBS MCHC (33.0 - 37.0 G/DL) 33.7 07/19 Chemistry Sodium (137 - 145 mmol/L) 143 Potassium (3.5 - 5.1 mmol/L) 4.1 Chloride (98 - 107 mmol/L) 109 H Carbon Dioxide (22 - 30 mmol/L) 22 Anion Gap (5 - 16) 12 BUN (7 - 17 mg/dL) 17 Creatinine (0.5 - 1.0 mg/dL) 0.8 Estimated GFR (>60 ml/min) > 60 BUN/Creatinine Ratio (7 - 25 %) 21.3 Glucose (65 - 99 mg/dL) 111 H Calcium (8.4 - 10.2 mg/dL) 9.4 Total Bilirubin (0.2 - 1.3 mg/dL) 0.5 AST (14 - 36 U/L) 24 ALT (9 - 52 U/L) 36 Alkaline Phosphatase (<127 U/L) 87 Troponin I (< 0.11 ng/ml) < 0.01 Total Protein (6.3 - 8.2 g/dL) 7.4 Albumin (3.5 - 5.0 g/dL) 4.4 Globulin (1.9 - 4.2 gm/dL) 3.0 Albumin/Globulin Ratio (1.1 - 2.2 %) 1.5 Hematology CBC w Diff NO MAN DIFF REQ WBC (4.8 - 10.8 /CUMM) 9.1 RBC (4.20 - 5.40 /CUMM) 4.80 Hgb (12.0 - 16.0 G/DL) 13.6 Hct (37 - 47 %) 40.4 MCV (81.0 - 99.0 FL) 84.1 MCH (27.0 - 31.0 PG) 28.3 RDW (11.5 - 14.5 %) 14.7 H Plt Count (130 - 400 /CUMM) 199 MPV (7.4 - 10.4 FL) 8.3 Gran % (42.2 - 75.2 %) 63.7 Lymphocytes % (20.5 - 51.1 %) 27.3 Monocytes % (1.7 - 9.3 %) 6.4 Eosinophils % (0 - 5 %) 2.1 Basophils % (0.0 - 2.0 %) 0.5 Absolute Granulocytes (1.4 - 6.5 /CUMM) 5.8 Absolute Lymphocytes (1.2 - 3.4 /CUMM) 2.5 Absolute Monocytes (0.10 - 0.60 /CUMM) 0.6 Absolute Eosinophils (0.0 - 0.7 /CUMM) 0.2 Absolute Basophils (0.0 - 0.2 /CUMM) 0 PUBS MCHC (33.0 - 37.0 G/DL) 33.7 Urines Urinalysis LIGHT H Urine Color (YEL,AMB,STR) YEL Urine Clarity (CLEAR) HAZY H Urine pH (5.0 - 8.0) 6.0 Ur Specific [place] (1.001 - 1.035) >= 1.030 Urine Protein (NEG,<30 MG/DL) NEG Urine Ketones (NEG) NEG Urine Nitrite (NEG) NEG Urine Bilirubin (NEG) NEG Urine Urobilinogen (0.1 - 1.0 EU/dl) 0.2 Ur Leukocyte Esterase (NEG) NEG Ur Microscopic SEDIMENT EXAMINED Urine RBC (0 - 5 /HPF) 1-3 Urine WBC (0 - 2 /HPF) 1-3 H Ur Epithelial Cells (NONE,FEW) MOD H Urine Bacteria (NEG/NONE) FEW H Urine Mucus (FEW,NONE) MOD H Urine Hemoglobin (NEG) NEG Urine Glucose (N MG/DL) NEG Vital Signs Date Time Temp Pulse Resp B/P B/P Pulse O2 O2 Flow FiO2 Mean Ox Delivery Rate 07/20 0800 98.7 96 20 138/84 94 Nasal 5.0L Cannula 07/20 0209 Nasal 5.0L Cannula 07/20 0116 97.2 98 18 132/70 94 Nasal Cannula 07/20 0038 96.4 89 18 128/65 90 Nasal 5.0L Cannula 07/19 2033 97.9 105 16 174/78 96 Nasal 2.0L Cannula 07/19 1915 90 07/19 1800 98.8 103 20 147/86 92 Room Air
--- NOTE | 2016-07-20 10:50 | Cons- Cardiology ---
General Information and HPI Consulting Request Date of Consult: 07/20/16 Requested By: KELLY MILES MD Reason for Consult: Abnormal EKG Source of Information: patient, old records Exam Limitations: no limitations History of Present Illness: The patient is an 85-year-old woman with a past medical history of hypertension as well as COPD and gastroesophageal reflux disease she presents with symptoms of cough and chills for approximately one week, and was noted to have a new right bundle branch block pattern on EKG. The patient denies a significant past cardiac history, and states she is otherwise active and describing performance of greater than 6 METs on a regular basis she is asymptomatic with this. Of note, she underwent a stress test approximately 2 years ago with reportedly normal findings. Her physical capacity is limited to her underlying respiratory issues (COPD). The patient states she has had symptoms of increasing cough as well as wheezing and dyspnea over the past several days. This is accompanied with myalgias. There was no accompanying chest pain nor palpitations. On arrival to our emergency room, she was noted to have a right bundle branch block pattern which is new in comparison to a prior EKG. She has subsequently ruled out for myocardial infarction via serial troponin isoenzymes Allergies/Medications Allergies: Coded Allergies: NO KNOWN ALLERGIES (11/27/10) Home Med List: Amlodipine Besylate 5 MG TABLET 1 TAB PO DAILY HIGH BP (Reported) Lansoprazole 30 MG CAPSULE. 1 CAP PO DAILY GERD (Reported) Lisinopril 40 MG TABLET 1 TAB PO DAILY HIGH BP (Reported) Current Medications: Current Medications Sig/Haroon Start time Last Medication Dose Route Stop Time Status Admin Acetaminophen 650 MG Q6P PRN 07/19 2300 AC PO Acetaminophen 1,000 MG Q6P PRN 07/19 2300 AC IV Albuterol Sulfate 3 ML ONCE ONE 07/19 2014 DC 07/19 INH 07/19 Albuterol Sulfate 3 ML ONCE ONE 07/19 184 DC 07/19 INH 07/19 184 1913 Azithromycin 500 MG 0 07/200 AC Sodium Chloride 250 ML IV Azithromycin 500 MG DAILY 07/20 1000 DC Sodium Chloride 250 ML IV Azithromycin 500 MG ONCE ONE 07/190 DC 07/19 PO 07/19 2130 2226 Enoxaparin Sodium 30 MG DAILY 07/20 1000 AC 07/20 SC 0927 Ipratropium [place] 2.5 ML ONCE ONE 07/19 1845 DC 07/19 INH 07/19 1846 1913 Methylprednisolone 40 MG Q12 07/20 1000 AC 07/20 IV 0927 Methylprednisolone 0 .STK-MED ONE 07/19 2048 DC .ROUTE Methylprednisolone 125 MG ONCE ONE 07/19 2015 DC 07/19 IV 07/19 Morphine Sulfate 0.5 MG Q4P PRN 07/19 2300 AC IV Review of Systems Review of Systems: The review of systems is negative for chest pains, palpitations nor lightheadedness. The remainder of the 14 point review of systems is noncontributory with the exception of above. 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 Home Smoking Status: Former Smoker ETOH Use: denies use Illicit Drug Use: denies illicit drug use Functional Ability ADLs Independent: dressing, eating, toileting, bathing. Ambulation: cane Exam & Diagnostic Data Vital Signs and I&O Vital Signs Date Time Temp Pulse Resp B/P B/P Pulse O2 O2 Flow FiO2 Mean Ox Delivery Rate 07/20 0800 98.7 96 20 138/84 94 Nasal 5.0L Cannula 07/20 0209 Nasal 5.0L Cannula 07/20 0116 97.2 98 18 132/70 94 Nasal Cannula 07/20 0038 96.4 89 18 128/65 90 Nasal 5.0L Cannula 07/19 2032 97.9 105 16 174/78 96 Nasal 2.0L Cannula 07/19 1915 90 07/19 1800 98.8 103 20 147/86 92 Room Air Intake & Output 07/20 1600 07/20 0800 07/20 0000 07/19 1600 07/19 0800 07/19 0000 Intake Total Output Total Balance Patient 190 lb Weight Weight Reported by Patient Measurement Method Physical Exam: General: Nontoxic, no apparent distress. HEENT: Sclera and conjunctiva within normal limits, without xanthelasmas. Neck: Carotids 2+ without bruits. Respiratory: Scattered rhonchi, air movement is decreased at bases, without accessory respiratory muscle use. Heart: Regular rate and rhythm, without murmurs, without JVD. Abdomen: Soft, nontender, no masses, normoactive bowel sounds. Extremities: Without clubbing, cyanosis, without edema. Neuro: Nonfocal exam, strength, 5 out of 5 Skin: Within normal limits without lesions. Psych: Mood and affect: Normal Labs/[place] Results: Laboratory Tests 07/20 07/20 07/20 1025 0255 0255 Chemistry Sodium (137 - 145 mmol/L) 144 Potassium (3.5 - 5.1 mmol/L) 4.1 Chloride (98 - 107 mmol/L) 109 H Carbon Dioxide (22 - 30 mmol/L) 22 Anion Gap (5 - 16) 13 BUN (7 - 17 mg/dL) 16 Creatinine (0.5 - 1.0 mg/dL) 0.7 Estimated GFR (>60 ml/min) > 60 BUN/Creatinine Ratio (7 - 25 %) 22.9 Troponin I (< 0.11 ng/ml) Pending < 0.01 Hematology CBC w Diff NO MAN DIFF REQ WBC (4.8 - 10.8 /CUMM) 8.4 RBC (4.20 - 5.40 /CUMM) 4.66 Hgb (12.0 - 16.0 G/DL) 13.1 Hct (37 - 47 %) 38.9 MCV (81.0 - 99.0 FL) 83.4 MCH (27.0 - 31.0 PG) 28.1 RDW (11.5 - 14.5 %) 14.9 H Plt Count (130 - 400 /CUMM) 194 MPV (7.4 - 10.4 FL) 8.4 Gran % (42.2 - 75.2 %) 92.7 H Lymphocytes % (20.5 - 51.1 %) 6.8 L Monocytes % (1.7 - 9.3 %) 0.4 L Eosinophils % (0 - 5 %) 0.1 Basophils % (0.0 - 2.0 %) 0 L Absolute Granulocytes (1.4 - 6.5 /CUMM) 7.8 H Absolute Lymphocytes (1.2 - 3.4 /CUMM) 0.6 L Absolute Monocytes (0.10 - 0.60 /CUMM) 0 L Absolute Eosinophils (0.0 - 0.7 /CUMM) 0 Absolute Basophils (0.0 - 0.2 /CUMM) 0 PUBS MCHC (33.0 - 37.0 G/DL) 33.7 07/19 Chemistry Sodium (137 - 145 mmol/L) 143 Potassium (3.5 - 5.1 mmol/L) 4.1 Chloride (98 - 107 mmol/L) 109 H Carbon Dioxide (22 - 30 mmol/L) 22 Anion Gap (5 - 16) 12 BUN (7 - 17 mg/dL) 17 Creatinine (0.5 - 1.0 mg/dL) 0.8 Estimated GFR (>60 ml/min) > 60 BUN/Creatinine Ratio (7 - 25 %) 21.3 Glucose (65 - 99 mg/dL) 111 H Calcium (8.4 - 10.2 mg/dL) 9.4 Total Bilirubin (0.2 - 1.3 mg/dL) 0.5 AST (14 - 36 U/L) 24 ALT (9 - 52 U/L) 36 Alkaline Phosphatase (<127 U/L) 87 Troponin I (< 0.11 ng/ml) < 0.01 Total Protein (6.3 - 8.2 g/dL) 7.4 Albumin (3.5 - 5.0 g/dL) 4.4 Globulin (1.9 - 4.2 gm/dL) 3.0 Albumin/Globulin Ratio (1.1 - 2.2 %) 1.5 Hematology CBC w Diff NO MAN DIFF REQ WBC (4.8 - 10.8 /CUMM) 9.1 RBC (4.20 - 5.40 /CUMM) 4.80 Hgb (12.0 - 16.0 G/DL) 13.6 Hct (37 - 47 %) 40.4 MCV (81.0 - 99.0 FL) 84.1 MCH (27.0 - 31.0 PG) 28.3 RDW (11.5 - 14.5 %) 14.7 H Plt Count (130 - 400 /CUMM) 199 MPV (7.4 - 10.4 FL) 8.3 Gran % (42.2 - 75.2 %) 63.7 Lymphocytes % (20.5 - 51.1 %) 27.3 Monocytes % (1.7 - 9.3 %) 6.4 Eosinophils % (0 - 5 %) 2.1 Basophils % (0.0 - 2.0 %) 0.5 Absolute Granulocytes (1.4 - 6.5 /CUMM) 5.8 Absolute Lymphocytes (1.2 - 3.4 /CUMM) 2.5 Absolute Monocytes (0.10 - 0.60 /CUMM) 0.6 Absolute Eosinophils (0.0 - 0.7 /CUMM) 0.2 Absolute Basophils (0.0 - 0.2 /CUMM) 0 PUBS MCHC (33.0 - 37.0 G/DL) 33.7 Urines Urinalysis LIGHT H Urine Color (YEL,AMB,STR) YEL Urine Clarity (CLEAR) HAZY H Urine pH (5.0 - 8.0) 6.0 Ur Specific [place] (1.001 - 1.035) >= 1.030 Urine Protein (NEG,<30 MG/DL) NEG Urine Ketones (NEG) NEG Urine Nitrite (NEG) NEG Urine Bilirubin (NEG) NEG Urine Urobilinogen (0.1 - 1.0 EU/dl) 0.2 Ur Leukocyte Esterase (NEG) NEG Ur Microscopic SEDIMENT EXAMINED Urine RBC (0 - 5 /HPF) 1-3 Urine WBC (0 - 2 /HPF) 1-3 H Ur Epithelial Cells (NONE,FEW) MOD H Urine Bacteria (NEG/NONE) FEW H Urine Mucus (FEW,NONE) MOD H Urine Hemoglobin (NEG) NEG Urine Glucose (N MG/DL) NEG Assessment/Plan Assessment/Plan 85-year-old woman with a past medical history of hypertension as well as COPD and gastroesophageal reflux disease she presents with symptoms of cough and chills for approximately one week, and was noted to have a new right bundle branch block pattern on EKG Abnormal EKG: The patient has evidence of a new right bundle branch block pattern comparison to her prior EKGs. We will obtain her outpatient stress test its from 2 years ago; however, given her EKG change, an echocardiogram will be obtained. This may be performed as an outpatient her respiratory status allows discharged today. There is no evidence for an acute coronary syndrome. Further outpatient management of her cardiac risk will be undertaken. Hypertension: Further titration of her regimen will be performed as an outpatient. Dyspnea/URI: Continue treatment as per hospital team and pulmonary. Thank you for allowing us to participate in the care of your patient. Please do not hesitate to contact us further with any questions. Sincerely, Yadiel Woods MD [facility] Consult Acknowledgment - Thank you for your consult request.
--- NOTE | 2016-07-20 16:14 | CT SCAN REPORT ---
EXAMINATION: CT ANGIOGRAM OF THE CHEST WITH AND WITHOUT CONTRAST (CT PULMONARY ANGIOGRAM FOR PE) CLINICAL INFORMATION: Shortness of breath. COMPARISON: Chest CT 05/16/2012. Chest radiograph from 07/19/2016. TECHNIQUE: Prior to contrast administration, noncontrast localization images were obtained. Subsequently, multidetector volumetric imaging was performed from the thoracic inlet to below the diaphragms following the administration of 94 mL Optiray 350 intravenous contrast. No contrast reaction reported. Sagittal, coronal, and MIP oblique sagittal reformatted images were obtained on the CT workstation, uploaded to PACS, and reviewed. Total exam dose-length product 530 mGy-cm. FINDINGS: QUALITY OF STUDY/CONTRAST BOLUS: Satisfactory PULMONARY ARTERIES: No central or segmental pulmonary emboli. THORACIC AORTA: No aneurysm or dissection. Tortuous course. LUNG: The central airways are patent. Bronchial wall thickening seen in the lower lobes with scattered bronchial filling defects present. Bronchial filling defects also seen in the right middle lobe more centrally. There is right middle lobe collapse. Air bronchograms are seen. Linear right lower lobe atelectasis with additional patchy apparent opacity most suggestive of atelectasis. Dependent left basilar atelectasis as well. Mild centrilobular emphysema in the upper lobes. 0.5 cm right upper lobe nodule, series 2 image 81, grossly unchanged. Previous right middle lobe nodule is obscured by lobar collapse. Pleural-based nodule in the left lower lobe seen on prior imaging is partially obscured by associated atelectasis in this area. PLEURA: No pleural effusion or pneumothorax. Biapical pleural thickening. MEDIASTINUM: The thyroid gland is unremarkable. The heart is mildly prominent. Coronary artery calcifications are present. A pericardial effusion. No mediastinal lymphadenopathy. No evidence of septal bowing or right heart strain. CHEST WALL/AXILLA: No axillary or internal mammary lymphadenopathy. Left axillary surgical clips. OSSEOUS STRUCTURES: No acute or suspicious osseous abnormality. Mild degenerative changes of the spine. UPPER ABDOMEN: Cholecystectomy. No reflux of contrast into the hepatic veins to suggest elevated right heart pressures. IMPRESSION: 1. No pulmonary embolism. 2. Scattered bronchial filling defects in the lower lobes. Right middle lobe bronchial filling defect with right middle lobe collapse. This is suspicious for aspiration or mucous plugging. 3. Prior pulmonary nodules are either stable or obscured by lung atelectasis. VTE: negative
[2016-07-20 16:32] VITALS: BP 138/80
--- NOTE | 2016-07-20 20:59 | Cons- Pulmonary ---
General Information and HPI Consulting Request Date of Consult: 07/20/16 Requested By: med team History of Present Illness: Patient is a 85 year-old lady with PMH of HTN, emphysema, arthritis, GERD who has come to the ED after 7 days of constant and worsening upper respiratory symptoms and weakness. Patient was in her usual state until 7 days ago on Monday when she started to have coughing, wheezing and runny nose, as she said, 'like a faucet'. Coughing became worse the next day and the patient also started to experience fever and chills and generalized weakness and malaise, to the extent that she had a hard time getting up from the chair. On Monday (07/15/16) patient went to Dr. Carlson office and was diagnosed with bronchitis and started on Levaquin and was recommended to come to the ED if symptoms did not improve. Patient called Dr. Carlson office today as her symptoms had gotten worse, she was advised to come to the ED and get a CXR. Patient reports dizziness off and on, myalgia, excessive coughing and sputum production (with greenish phlegm), denies any sick contacts, has received flu shot as well as pneumovax this year. Patient always has SOB on exertion, which is not worsened, denies SOB at rest, denies orthopnea and lower extremity swelling. does not take oxygen at home, was a former smoker and quit in 1997 ( smoke for 40 years up to 2-3 packs/day). She follows up with Dr. Christensen for her emphysema and reports that she was started on Breo recently. Does not take Spiriva any more. Denies chest pain, palpitation, headache, vision changes, denies changes in bowel habits or abdominal pain, denies urine changes, has urinary urgency and follow up with Dr. Hendrix, she is off of any medication for her overactive bladder. Patient generally does not drink much water but drinks a lot of coffee and tea. Review of Systems Review of Systems Constitutional: Reports: chills, fever, weakness. EENTM: Reports: nasal congestion. Denies: visual changes. Cardiovascular: Denies: chest pain, palpitations, peripheral edema. Respiratory: Reports: cough, short of breath, sputum production, wheezing. Denies: orthopnea , stridor. GI: Denies: abdominal pain, diarrhea, nausea, bloody stool, changes in stool, vomiting. Genitourinary: Reports: frequency, urgency. Denies: dysuria. Musculoskeletal: Reports: back pain, joint pain. Skin: Reports: no symptoms. Neurological/Psychological: Reports: no symptoms. Hematologic/Endocrine: Reports: no symptoms. Allergies/Medications Allergies: Coded Allergies: NO KNOWN ALLERGIES (11/27/10) Home Med List: Amlodipine Besylate 5 MG TABLET 1 TAB PO DAILY HIGH BP (Reported) Lansoprazole 30 MG CAPSULE.DR 1 CAP PO DAILY GERD (Reported) Lisinopril 40 MG TABLET 1 TAB PO DAILY HIGH BP (Reported) Review of Systems Review of Systems Constitutional: Reports: see HPI. 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 Home Smoking Status: Former Smoker ETOH Use: denies use Illicit Drug Use: denies illicit drug use Functional Ability ADLs Independent: dressing, eating, toileting, bathing. Ambulation: cane Exam & Diagnostic Data Last 24 Hrs of Vital Signs/I&O Vital Signs Date Time Temp Pulse Resp B/P B/P Pulse O2 O2 Flow FiO2 Mean Ox Delivery Rate 07/20 2015 92 Nasal 2.0L Cannula 07/20 1632 97.7 93 20 138/80 93 Nasal Cannula 07/20 1600 Nasal 2.0L Cannula 07/20 1256 Nasal 2.0L Cannula 07/20 1256 92 Nasal 2.0L Cannula 07/20 0800 93 Nasal 2.0L Cannula 07/20 0800 98.7 96 20 138/84 94 Nasal 5.0L Cannula 07/20 0209 Nasal 5.0L Cannula 07/20 0116 97.2 98 18 132/70 94 Nasal Cannula 07/20 0038 96.4 89 18 128/65 90 Nasal 5.0L Cannula Intake & Output 07/20 1600 07/20 0800 07/20 0000 Intake Total 720 Output Total Balance 720 Intake, Oral 720 Patient 190 lb Weight Weight Reported by Patient Measurement Method Last 48 Hrs of Labs/Bayron: Laboratory Tests 07/20/16 1025: Troponin I < 0.01 07/20/16 0255: Troponin I < 0.01 07/20/16 0255: Anion Gap 13, Estimated GFR > 60, BUN/Creatinine Ratio 22.9, CBC w Diff NO MAN DIFF REQ, RBC 4.66, MCV 83.4, MCH 28.1, RDW 14.9 H, MPV 8.4, Gran % 92.7 H, Lymphocytes % 6.8 L, Monocytes % 0.4 L, Eosinophils % 0.1, Basophils % 0 L, Absolute Granulocytes 7.8 H, Absolute Lymphocytes 0.6 L, Absolute Monocytes 0 L, Absolute Eosinophils 0, Absolute Basophils 0, PUBS MCHC 33.7 07/19/163: Urinalysis LIGHT H, Urine Color YEL, Urine Clarity HAZY H, Urine pH 6.0, Ur Specific [place] >= 1.030, Urine Protein NEG, Urine Ketones NEG, Urine Nitrite NEG, Urine Bilirubin NEG, Urine Urobilinogen 0.2, Ur Leukocyte Esterase NEG, Ur Microscopic SEDIMENT EXAMINED, Urine RBC 1-3, Urine WBC 1-3 H, Ur Epithelial Cells MOD H, Urine Bacteria FEW H, Urine Mucus MOD H, Urine Hemoglobin NEG, Urine Glucose NEG 07/19/162039: Anion Gap 12, Estimated GFR > 60, BUN/Creatinine Ratio 21.3, Glucose 111 H, Calcium 9.4, Total Bilirubin 0.5, AST 24, ALT 36, Alkaline Phosphatase 87, Troponin I < 0.01, Total Protein 7.4, Albumin 4.4, Globulin 3.0, Albumin/ Globulin Ratio 1.5, CBC w Diff NO MAN DIFF REQ, RBC 4.80, MCV 84.1, MCH 28.3, RDW 14.7 H, MPV 8.3, Gran % 63.7, Lymphocytes % 27.3, Monocytes % 6.4, Eosinophils % 2.1, Basophils % 0.5, Absolute Granulocytes 5.8, Absolute Lymphocytes 2.5, Absolute Monocytes 0.6, Absolute Eosinophils 0.2, Absolute Basophils 0, PUBS MCHC 33.7 Microbiology 07/20 0035 NASOPHARYN: Influenza Virus A & B Rapid Smear - COMP Assessment/Plan Impression/Plan: CT CHest IMPRESSION: 1. No pulmonary embolism. 2. Scattered bronchial filling defects in the lower lobes. Right middle lobe bronchial filling defect with right middle lobe collapse. This is suspicious for aspiration or mucous plugging. 3. Prior pulmonary nodules are either stable or obscured by lung atelectasis. VTE: negative DICTATED BY: NOEMI SHORT,GRAEME DATE/TIME DICTATED:07/20/161602 Physical Exam General Appearance Alert, Oriented X3, Cooperative, No Acute Distress Skin No Significant Lesion Skin Temp/Moisture Exam: Warm/Dry Sepsis Skin Exam (color): Normal for Ethnicity HEENT Atraumatic, EOMI, Mucous Membr. moist/pink Neck Supple Cardiovascular Regular Rate, Normal S1, Normal S2, No Murmurs Lungs Normal Air Movement, decreased breath sounds, no wheezing or rhonchi appreciated Abdomen Normal Bowel Sounds, Soft, there is LUQ, suprapubic, RUQ and RLQ pain and tenderness, villalobos sign is negative, there is left side CVA tenderness Neurological Normal Speech, Strength at 5/5 X4 Ext, Normal Tone, Sensation Intact, Cranial Nerves 3-12 NL Extremities No Edema, Normal Pulses Vascular Normal Pulses, Pulses Symmetrical This is a lady with very significant COPD with FEV1 of 1.0 L, previous osteoporosis, remote history of breast cancer, hypertension, GERD, significant mucous plug, right bundle branch block, recent antibiotics with levofloxacin, now has * Resolving Acute hypoxemic respiratory failure related to mucous plugging COPD exacerbation and ventilator perfusion mismatch * Significant COPD with recent bronchitis with mucous plugging with bilateral filling defect in both lower lobes especially in the right middle lobe with right middle lobe collapse with ventilator perfusion mismatch causing hypoxemia * Probable recent significant bronchitis which appears to be bacterial status post 5 days of antibiotics * End-stage COPD with exacerbation * Recent right bundle branch block. * Significant GERD with probable aspiration * Hypertension * Renal cysts RECOMMENDATION * Start ceftriaxone with azithromycin * Sputum culture * Chest physical therapy with Mucomyst twice a day especially towards right middle lobe * Continue current medications * Change her to DuoNeb 4 times a day [id number] from albuterol * Continue corticosteroids at 80 mg and reduce it to 60 mg tomorrow * Continue to follow EKG * If she were to need antihypertensive she probably would benefit from losartan into the lisinopril as she does have an annoying cough * Keep the head of bed elevated * Proton pump inhibitor by mouth daily Consult Acknowledgment - Thank you for your consult request.
[2016-07-21 00:09] VITALS: BP 126/82
--- NOTE | 2016-07-21 06:51 | PN- Housestaff ---
Subjective Follow-up For: COPD exacerbation New onset RBBB Tele-Events Since Last Visit: NSR, rate 70-90s Peaked T waves at 12am BBB at 4am Subjective: Patient seen and examined at bedside. Resting comfortably in chair. Feeling better overall. Endorses persistent cough but improved shortness of breath. Denies any chest pain, palpitations, lightheadedness, dizziness, abdominal pain, n/v/c/d. No events reported overnight. Review of Systems Constitutional: Reports: see HPI. Objective Last 24 Hrs of Vital Signs/I&O Vital Signs Date Time Temp Pulse Resp B/P B/P Pulse O2 O2 Flow FiO2 Mean Ox Delivery Rate 07/21 0811 98.1 80 18 132/88 92 Nasal 2.0L Cannula 07/21 0009 98.2 84 18 126/82 93 Nasal Cannula 07/21 0000 94 Nasal 2.0L Cannula 07/20 2015 92 Nasal 2.0L Cannula 07/20 1632 97.7 93 20 138/80 93 Nasal Cannula 07/20 1600 Nasal 2.0L Cannula 07/20 1256 Nasal 2.0L Cannula 07/20 1256 92 Nasal 2.0L Cannula Intake & Output 07/21 1600 07/21 0800 07/21 0000 Intake Total 200 490 Output Total 400 Balance -200 490 Intake, IV 250 Intake, Oral 200 240 Output, Urine 400 Physical Exam General Appearance: Alert, Oriented X3, Cooperative, No Acute Distress Other Physical Findings: Skin No Significant Lesion Skin Temp/Moisture Exam: Warm/Dry Sepsis Skin Exam (color): Normal for Ethnicity HEENT Atraumatic, EOMI, Mucous Membr. moist/pink Neck Supple Cardiovascular Regular Rate, Normal S1, Normal S2, No Murmurs Lungs Normal Air Movement, decreased breath sounds, no wheezing or rhonchi appreciated Abdomen Normal Bowel Sounds, Soft, there is LUQ, suprapubic, RUQ and RLQ pain and tenderness, villalobos sign is negative, there is left side CVA tenderness Neurological Normal Speech, Strength at 5/5 X4 Ext, Normal Tone, Sensation Intact, Cranial Nerves 3-12 NL Extremities No Edema, Normal Pulses Vascular Normal Pulses, Pulses Symmetrical Current Medications: Current Medications Sig/Haroon Start time Last Medication Dose Route Stop Time Status Admin Acetaminophen 650 MG Q6P PRN 07/19 2300 AC PO Acetaminophen 1,000 MG Q6P PRN 07/19 2300 AC IV Albuterol Sulfate 3 ML Q4P PRN 07/20 1330 AC 07/20 INH 2015 Azithromycin 500 MG 2200 07/20 2200 AC 07/20 Sodium Chloride 250 ML IV 2153 Azithromycin 500 MG DAILY 07/20 1000 DC Sodium Chloride 250 ML IV Ceftriaxone Sodium 1,000 MG DAILY 07/21 1000 AC IV Enoxaparin Sodium 30 MG DAILY 07/20 1000 AC 07/20 SC 0927 Guaifenesin/Codeine 10 ML Q6P PRN 07/20 1115 AC 07/20 Phosphate PO 215 Methylprednisolone 40 MG Q12 07/20 1000 AC 07/20 IV 2153 Morphine Sulfate 0.5 MG Q4P PRN 07/19 2300 AC IV Last 24 Hrs of Lab/Bayron Results Last 24 Hrs of Labs/Mics: Laboratory Tests 07/20/16 1025: Troponin I < 0.01 Assessment/Plan Assessment: Patient is a 85 year-old lady with PMH of HTN, emphysema, arthritis, GERD who has come to the ED after 7 days of constant, worsening upper respiratory symptoms and generalized weakness. Patient is found to have some new findings in the EKG including new RBBB and T wave inversions in precordial leads (V2-V6). Patient is admitted to telemetry for close monitoring and to rule out arrhythmias. # Acute hypoxic resp failure - resolved Most likely 2/2 COPD exacerbation with mucous plugging and a component of recent bronchitis. CXR showed bibasilar linear opacities concerning for atelectasis. Flu test negative for influenza A&B. No fever and leukocytosis. Patient has a history of emphysema, not on home O2 (takes Breo at home). Patient was satting below 90%, requiring upto 5 liters of oxygen on admission. * O2 supplementation as needed to keep SO2>92% * TRC/Nebs as needed * Decrease IV solumedrol 40 mg Q12 to 30mg Q12 * Cont Azithromycin 500 mg IV * Start IV CTX as per pulm rec * Sputum culture and blood culture * CTA to r/o PE # New EKG changes EKG revealed new RBBB, denies any chest pain and palpitation, troponin <0.01 * Serial troponin and EKG * Continuous EKG monitoring * Appreciate cardio recs Possible UTI/kidney stone Has CVA tenderness, UA is negative, currently afebrile, normal WBC count * Urine culture sent, will follow * Kidney ultrasound - no signs of pyelonephritis History of HTN * continue lisinopril, amlodipine History of GERD * continue lansoprazole mild pain pathway DVT px Lovenox SC Diet regular FC Problem List: 1. Bronchitis 2. COPD 3. GERD Pain Ratin Pain Location: 0 Pain Goal: Remain pain free Pain Plan: Mild pathway Tomorrow's Labs & Rationales: None
[2016-07-21 08:11] VITALS: BP 132/88
--- NOTE | 2016-07-21 09:22 | PN- Att Addend ---
Attending Addendum Attending Brief Note Patient complains of persistent cough although improved. Now requiring 2 liters of oxygen. General Appearance: Alert, No Acute Distress Skin: Grossly normal HEENT: PEERLA Neck: Supple, No JVD Cardiovascular: Regular Rate, Normal S1, Normal S2, No Murmurs Lungs: Generalized coarse lung sounds Abdomen: Normal Bowel Sounds, Soft, No Tenderness Neurological: Normal Speech, Strength at 5/5 X4 Ext, Cranial Nerves 3-12 NL, Reflexes 2+ Extremities: No Clubbing, No Cyanosis, No Edema Vascular: Normal Pulses Assessment 85-year-old with history of hypertension, emphysema, arthritis, GERD presenting with shortness of breath and upper respiratory symptoms. She was seen by Dr. Johnson Carlson and was prescribed Levaquin for 7 days and she's completed 5 days of antibiotics. CTA is negative for PE she has mucus plugging secondary to asthma exacerbations. Plan for antibiotics and will try to get a sputum culture. Plan Continue Solu-Medrol Chest PT and induce sputum Send sputum culture Antibiotics per pulmonary Check echocardiogram. Continue other home medications DVT prophylaxis Current Medications Sig/Haroon Start time Last Medication Dose Route Stop Time Status Admin Acetaminophen 650 MG Q6P PRN 07/19 2300 AC PO Acetaminophen 1,000 MG Q6P PRN 07/19 2300 AC IV Acetylcysteine 2 ML BID 07/21 1000 AC INH Albuterol Sulfate 3 ML EVERY 4 HRS/AWAKE 07/21 1200 AC 07/21 INH 0920 Albuterol Sulfate 3 ML Q4P PRN 07/20 1330 DC 07/20 INH 2015 Azithromycin 500 MG 2200 07/20 2200 AC 07/20 Sodium Chloride 250 ML IV 2153 Azithromycin 500 MG DAILY 07/20 1000 DC Sodium Chloride 250 ML IV Ceftriaxone Sodium 1,000 MG DAILY 07/21 1000 AC IV Enoxaparin Sodium 30 MG DAILY 07/20 1000 AC 07/20 SC 0927 Guaifenesin/Codeine 10 ML Q6P PRN 07/20 1115 AC 07/20 Phosphate PO 2153 Methylprednisolone 40 MG Q12 07/20 1000 AC 07/20 IV 2153 Morphine Sulfate 0.5 MG Q4P PRN 07/19 2300 AC IV Laboratory Tests 07/20 1025 Chemistry Troponin I (< 0.11 ng/ml) < 0.01 Vital Signs Date Time Temp Pulse Resp B/P B/P Pulse O2 O2 Flow FiO2 Mean Ox Delivery Rate 07/21 0811 98.1 80 18 132/88 92 Nasal 2.0L Cannula 07/21 0800 94 Nasal 2.0L Cannula 07/21 0009 98.2 84 18 126/82 93 Nasal Cannula 07/21 0000 94 Nasal 2.0L Cannula 07/20 2015 92 Nasal 2.0L Cannula 07/20 1632 97.7 93 20 138/80 93 Nasal Cannula 07/20 1600 Nasal 2.0L Cannula 07/20 1256 Nasal 2.0L Cannula 07/20 1256 92 Nasal 2.0L Cannula
--- NOTE | 2016-07-21 13:24 | PN- Pulmonary ---
Subjective HPI/Critical Care Issues: Doing well Coughing mild fatigue Objective Current Medications: Current Medications Sig/Haroon Start time Last Medication Dose Route Stop Time Status Admin Acetaminophen 650 MG Q6P PRN 07/19 2300 AC PO Acetaminophen 1,000 MG Q6P PRN 07/19 2300 AC IV Acetylcysteine 2 ML BID 07/21 1000 AC 07/21 INH 1256 Albuterol Sulfate 3 ML EVERY 4 HRS/AWAKE 07/21 1200 AC 07/21 INH 1256 Albuterol Sulfate 3 ML Q4P PRN 07/20 1330 DC 07/20 INH 2015 Azithromycin 500 MG 2200 07/20 2200 AC 07/20 Sodium Chloride 250 ML IV 2153 Ceftriaxone Sodium 1,000 MG DAILY 07/21 1000 AC 07/21 IV 1058 Enoxaparin Sodium 30 MG DAILY 07/20 1000 AC 07/21 SC 1059 Guaifenesin/Codeine 10 ML Q6P PRN 07/20 1115 AC 07/20 Phosphate PO 2153 Methylprednisolone 30 MG Q12 07/21 1000 AC 07/21 IV 1058 Methylprednisolone 40 MG Q12 07/20 1000 DC 07/20 IV 2153 Morphine Sulfate 0.5 MG Q4P PRN 07/19 2300 AC IV Omeprazole 20 MG DAILY AC 07/21 0930 AC 07/21 PO 1059 Vital Signs & I&O Last 24 Hrs of Vitals and I&O: Vital Signs Date Time Temp Pulse Resp B/P B/P Pulse O2 O2 Flow FiO2 Mean Ox Delivery Rate 07/21 1257 93 Nasal 2.0L Cannula 07/21 0811 98.1 80 18 132/88 92 Nasal 2.0L Cannula 07/21 0800 94 Nasal 2.0L Cannula 07/21 0009 98.2 84 18 126/82 93 Nasal Cannula 07/21 0000 94 Nasal 2.0L Cannula 07/20 2015 92 Nasal 2.0L Cannula 07/20 1632 97.7 93 20 138/80 93 Nasal Cannula 07/20 1600 Nasal 2.0L Cannula Intake & Output 07/21 1600 07/21 0800 07/21 0000 Intake Total 200 490 Output Total 400 Balance -200 490 Intake, IV 250 Intake, Oral 200 240 Output, Urine 400 Impression/Plan Impression/Plan Impression/Plan: CT CHest IMPRESSION: 1. No pulmonary embolism. 2. Scattered bronchial filling defects in the lower lobes. Right middle lobe bronchial filling defect with right middle lobe collapse. This is suspicious for aspiration or mucous plugging. 3. Prior pulmonary nodules are either stable or obscured by lung atelectasis. VTE: negative DICTATED BY: NOEMI SHORT,GRAEME DATE/TIME DICTATED:07/20/161602 Physical Exam General Appearance Alert, Oriented X3, Cooperative, No Acute Distress Skin No Significant Lesion Skin Temp/Moisture Exam: Warm/Dry Sepsis Skin Exam (color): Normal for Ethnicity HEENT Atraumatic, EOMI, Mucous Membr. moist/pink Neck Supple Cardiovascular Regular Rate, Normal S1, Normal S2, No Murmurs Lungs Normal Air Movement, decreased breath sounds, no wheezing or rhonchi appreciated Abdomen Normal Bowel Sounds, Soft, there is LUQ, suprapubic, RUQ and RLQ pain and tenderness, villalobos sign is negative, there is left side CVA tenderness Neurological Normal Speech, Strength at 5/5 X4 Ext, Normal Tone, Sensation Intact, Cranial Nerves 3-12 NL Extremities No Edema, Normal Pulses Vascular Normal Pulses, Pulses Symmetrical This is a lady with very significant COPD with FEV1 of 1.0 L, previous osteoporosis, remote history of breast cancer, hypertension, GERD, significant mucous plug, right bundle branch block, recent antibiotics with levofloxacin, now has * Resolving Acute hypoxemic respiratory failure related to mucous plugging COPD exacerbation and ventilator perfusion mismatch * Significant COPD with recent bronchitis with mucous plugging with bilateral filling defect in both lower lobes especially in the right middle lobe with right middle lobe collapse with ventilator perfusion mismatch causing hypoxemia * Probable recent significant bronchitis which appears to be bacterial status post 5 days of antibiotics * End-stage COPD with exacerbation * Recent right bundle branch block. * Significant GERD with probable aspiration * Hypertension * Renal cysts RECOMMENDATION * Start ceftriaxone with azithromycin * Sputum culture * Chest physical therapy with Mucomyst twice a day especially towards right middle lobe * Continue current medications * Change her to DuoNeb 3 times a day [id number] from albuterol * Continue corticosteroids to 60 mg tomorrow * Continue to follow EKG * Keep the head of bed elevated * Proton pump inhibitor by mouth daily
[2016-07-21 16:23] VITALS: BP 130/74
[2016-07-21 19:39] VITALS: BP 140/70
[2016-07-21 22:39] VITALS: BP 102/60
[2016-07-22 06:27] VITALS: BP 130/60
--- NOTE | 2016-07-22 08:09 | ECHOCARDIOGRAM REPORT ---
GODWIN AKERS Age: 85 : 1930 Gender: F Exam Date: 07/21/2016 10:09 Exam Location: [address] Ht (in): 66 Wt (lb): 190 BSA: 2.03 BP: 132 / 88 Ordering Physician: JADON COTTER MD Referring Physician: JADON COTTER MD Technologist: Mello Stephenson [facility] Room Number: 180-2 Indications: ARRHYTHMIAS Rhythm: Other Technical Quality: poor FINDINGS Left Ventricle Normal global left ventricular size, wall thickness, systolic function with no obvious regional wall motion abnormalities. Normal left ventricular ejection fraction estimated at 60-65%. Right Ventricle Normal right ventricular size and function. Right Atrium Normal right atrial size. Left Atrium Normal left atrial size. Mitral Valve Structurally normal mitral valve. Trace to mild mitral regurgitation. Aortic Valve Aortic valve not well visualized, grossly normal. Tricuspid Valve Structurally normal tricuspid valve. Trace to mild tricuspid regurgitation. Right ventricular systolic pressure estimated to be elevated at 42 mmHg. Pulmonic Valve Pulmonic valve not well visualized, grossly normal. Pericardium No pericardial effusion. Great Vessels Normal size aortic root. CONCLUSIONS Normal left and right ventricular systolic function. No significant valvular abnormalities noted Jayy Bean M.D. (Electronically Signed) Final Date: 22 Jul 2016 08:08 MEASUREMENTS (Male / Female) Normal Values 2D ECHO LV Diastolic Diameter PLAX 3.8 cm 4.2 - 5.9 / 3.9 - 5.3 cm LV Systolic Diameter PLAX 2.4 cm 2.1 - 4.0 cm LV Fractional Shortening PLAX 36.8 % 25 - 46 % LV Ejection Fraction 2D Teich 67.5 % IVS Diastolic Thickness 0.9 cm LVPW Diastolic Thickness 0.9 cm LV Relative Wall Thickness 0.5 RV Internal Dim ED PLAX 4.1 cm 1.9 - 3.8 cm LVOT Diameter 2.0 cm Aortic Root Diameter 3.2 cm LA Systolic Diameter LX 2.8 cm 3.0 - 4.0 / 2.7 - 3.8 cm Ascending Aorta Diameter 2.0 cm DOPPLER AV Peak Velocity 170.0 cm/s AV Peak Gradient 11.6 mmHg AV Mean Velocity 109.0 cm/s AV Mean Gradient 6.0 mmHg AV Velocity Time Integral 32.5 cm LVOT Peak Velocity 127.0 cm/s LVOT Peak Gradient 6.5 mmHg LVOT Mean Velocity 69.1 cm/s LVOT Mean Gradient 2.0 mmHg LVOT Velocity Time Integral 23.7 cm LVOT Stroke Volume 74.5 cm AV Area Cont Eq vti 2.3 cm AV Area Cont Eq pk 2.3 cm MV Peak Velocity 128.0 cm/s MV Peak Gradient 6.6 mmHg MV Mean Velocity 66.6 cm/s MV Mean Gradient 2.0 mmHg Mitral E Point Velocity 65.2 cm/s Mitral A Point Velocity 108.0 cm/s Mitral E to A Ratio 0.6 MV PHT Velocity 89.6 cm/s MV Deceleration Horry 237.0 cm/s MV Pressure Half Time 113.4 ms MV Area PHT 1.9 cm MV Deceleration Time 444.0 ms TR Peak Velocity 285.0 cm/s TR Peak Gradient 32.5 mmHg Right Atrial Pressure 10.0 mmHg Pulmonary Artery Systolic Pressu 42.5 mmHg Right Ventricular Systolic Press 42.5 mmHg PV Peak Velocity 103.0 cm/s PV Peak Gradient 4.2 mmHg PV Mean Velocity 64.9 cm/s PV Mean Gradient 2.0 mmHg PV Velocity Time Integral 19.7 cm LV E' Lateral Velocity 8.1 cm/s Mitral E to LV E' Lateral Ratio 8.1 LV E' Septal Velocity 10.5 cm/s Mitral E to LV E' Septal Ratio 6.2
--- NOTE | 2016-07-22 08:10 | Patient Discharge Instructions ---
Discharge Instructions General Discharge Information You were seen/treated for: COPD exacerbation Bronchitis You had these procedures: none Special Instructions: Please follow up with your net developer Dr. Christensen within [address] Bean within 2 weeks of discharge. Please follow-up with primary care doctor in 1 week Needs home oxygen-2 L. Diet Continue normal diet: Yes Activity Full Activity/No Limits: Yes Acute Coronary Syndrome Inclusion Criteria At DC or during hospital stay patient has or had the following: ACS DIAGNOSIS No Discharge Core Measures Meds if any: Prescribed or Continued at Discharge Meds if any: NOT Prescribed or Continued at Discharge Congestive Heart Failure Inclusion Criteria At DC or during hospital stay patient has or had the following: CHF DIAGNOSIS No Discharge Core Measures Meds if any: Prescribed or Continued at Discharge Meds if any: NOT Prescribed or Continued at Discharge Cerebrovascular accident Inclusion Criteria At DC or during hospital stay patient has or had the following: CVA/TIA Diagnosis No Discharge Core Measures Meds if any: Prescribed or Continued at Discharge Meds if any: NOT Prescribed or Continued at Discharge Venous thromboembolism Inclusion Criteria VTE Diagnosis No VTE Type NONE VTE Confirmed by (Test) NONE Discharge Core Measures - Per Current guidelines, there needs to be overlap - treatment for the first 5 days of Warfarin therapy. - If discharged on Warfarin prior to 5 days of - overlap therapy, the patient will need to be - assessed for post discharge needs including - *Post discharge parental anticoagulation - *Warfarin and/or parental anticoagulation education - *Follow up date to check INR post discharge At least 5 days overlap therapy as Inpatient No Meds if any: Prescribed or Continued at Discharge Note: Overlap Therapy is Warfarin and Anticoagulant Meds if any: NOT Prescribed or Continued at Discharge
--- NOTE | 2016-07-22 09:28 | PN- Att Addend ---
Attending Addendum Attending Brief Note Patient complains of persistent cough although improved. Now requiring 2 liters of oxygen. General Appearance: Alert, No Acute Distress Skin: Grossly normal HEENT: PEERLA Neck: Supple, No JVD Cardiovascular: Regular Rate, Normal S1, Normal S2, No Murmurs Lungs: Generalized coarse lung sounds Abdomen: Normal Bowel Sounds, Soft, No Tenderness Neurological: Normal Speech, Strength at 5/5 X4 Ext, Cranial Nerves 3-12 NL, Reflexes 2+ Extremities: No Clubbing, No Cyanosis, No Edema Vascular: Normal Pulses Assessment 85-year-old with history of hypertension, emphysema, arthritis, GERD presenting with shortness of breath and upper respiratory symptoms. She was seen by Dr. Johnson Carlson and was prescribed Levaquin for 7 days and she's completed 5 days of antibiotics. CTA is negative for PE she has mucus plugging secondary to asthma exacerbations. Overall improvement in symptoms however she continues to require oxygen. Echocardiogram is normal and currently sputum cultures pending. Plan Taper steroids Follow sputum culture Chest PT Antibiotics per pulmonary Continue other home medications DVT prophylaxis Current Medications Sig/Haroon Start time Last Medication Dose Route Stop Time Status Admin Acetaminophen 650 MG Q6P PRN 07/19 2300 AC PO Acetaminophen 1,000 MG Q6P PRN 07/19 2300 AC IV Acetylcysteine 2 ML BID 07/21 1000 AC 07/22 INH 0814 Albuterol Sulfate 3 ML EVERY 4 HRS/AWAKE 07/21 1200 AC 07/22 INH 0814 Azithromycin 500 MG 2200 07/20 2200 AC 07/21 Sodium Chloride 250 ML IV 2115 Ceftriaxone Sodium 1,000 MG DAILY 07/21 1000 AC 07/21 IV 1058 Enoxaparin Sodium 30 MG DAILY 07/20 1000 AC 07/21 SC 1059 Guaifenesin/Codeine 10 ML Q6P PRN 07/20 1115 AC 07/21 Phosphate PO 2153 Methylprednisolone 30 MG Q12 07/21 1000 AC 07/21 IV 2115 Methylprednisolone 40 MG Q12 07/20 1000 DC 07/20 IV 2153 Morphine Sulfate 0.5 MG Q4P PRN 07/19 2300 AC IV Omeprazole 20 MG DAILY AC 07/21 0930 AC 07/22 PO 0614 Patient Medication 1 ED .STK-MED ONE 07/21 1430 MO Teaching ED 07/21 1431 Laboratory Tests 07/22 0615 Chemistry Sodium (137 - 145 mmol/L) 145 Potassium (3.5 - 5.1 mmol/L) 4.6 Chloride (98 - 107 mmol/L) 108 H Carbon Dioxide (22 - 30 mmol/L) 23 Anion Gap (5 - 16) 14 BUN (7 - 17 mg/dL) 28 H Creatinine (0.5 - 1.0 mg/dL) 0.8 Estimated GFR (>60 ml/min) > 60 BUN/Creatinine Ratio (7 - 25 %) 35.0 H Magnesium (1.6 - 2.3 mg/dL) 2.2 Vital Signs Date Time Temp Pulse Resp B/P B/P Pulse O2 O2 Flow FiO2 Mean Ox Delivery Rate 07/22 0817 93 Nasal 2.0L Cannula 07/22 0627 98.2 88 20 130/60 92 Nasal 2.0L Cannula 07/22 0000 Nasal 2.0L Cannula 07/21 2239 98.4 84 20 102/60 91 Nasal Cannula 07/21 1939 98.5 108 20 140/70 93 Room Air 07/21 1638 94 Nasal 2.0L Cannula 07/21 1623 97.5 88 20 130/74 94 Nasal 2.0L Cannula 07/21 1600 94 Nasal 2.0L Cannula 07/21 1257 93 Nasal 2.0L Cannula
--- NOTE | 2016-07-22 13:44 | PN- Pulmonary ---
Subjective HPI/Critical Care Issues: DOing well Patient complains of persistent cough although improved. Now requiring 2 liters of oxygen. Objective Current Medications: Current Medications Sig/Haroon Start time Last Medication Dose Route Stop Time Status Admin Acetaminophen 650 MG Q6P PRN 07/19 2300 AC PO Acetaminophen 1,000 MG Q6P PRN 07/19 2300 AC IV Acetylcysteine 2 ML BID 07/21 1000 AC 07/22 INH 0814 Albuterol Sulfate 3 ML EVERY 4 HRS/AWAKE 07/21 1200 AC 07/22 INH 1252 Azithromycin 500 MG 2200 07/20 2200 AC 07/21 Sodium Chloride 250 ML IV 2115 Ceftriaxone Sodium 1,000 MG DAILY 07/21 1000 AC 07/22 IV 0941 Docusate Sodium 100 MG DAILY NEEDED PRN 07/22 1200 AC PO Enoxaparin Sodium 30 MG DAILY 07/20 1000 AC 07/22 SC 0941 Guaifenesin/Codeine 10 ML Q6P PRN 07/20 1115 AC 07/21 Phosphate PO 2153 Methylprednisolone 30 MG Q12 07/21 1000 AC 07/22 IV 0941 Morphine Sulfate 0.5 MG Q4P PRN 07/19 2300 AC IV Omeprazole 20 MG DAILY AC 07/21 0930 AC 07/22 PO 0614 Patient Medication 1 ED .STK-MED ONE 07/21 1430 DC Teaching ED 07/21 1431 Polyethylene Glycol 17 GM DAILY PRN 07/22 1200 AC PO Senna/Docusate Sodium 2 TAB DAILY PRN 07/22 1200 AC PO Vital Signs & I&O Last 24 Hrs of Vitals and I&O: Vital Signs Date Time Temp Pulse Resp B/P B/P Pulse O2 O2 Flow FiO2 Mean Ox Delivery Rate 07/22 0817 93 Nasal 2.0L Cannula 07/22 0800 92 Nasal 2.0L Cannula 07/22 0627 98.2 88 20 130/60 92 Nasal 2.0L Cannula 07/22 0000 Nasal 2.0L Cannula 07/219 98.4 84 20 102/60 91 Nasal Cannula 07/21 1939 98.5 108 20 140/70 93 Room Air 07/21 1638 94 Nasal 2.0L Cannula 07/21 1623 97.5 88 20 130/74 94 Nasal 2.0L Cannula 07/21 1600 94 Nasal 2.0L Cannula Intake & Output 07/22 1600 07/22 0800 07/22 0000 Intake Total 120 540 Output Total Balance 120 540 Intake, IV 300 Intake, Oral 120 240 Laboratory Tests 07/22 0615 Chemistry Sodium (137 - 145 mmol/L) 145 Potassium (3.5 - 5.1 mmol/L) 4.6 Chloride (98 - 107 mmol/L) 108 H Carbon Dioxide (22 - 30 mmol/L) 23 Anion Gap (5 - 16) 14 BUN (7 - 17 mg/dL) 28 H Creatinine (0.5 - 1.0 mg/dL) 0.8 Estimated GFR (>60 ml/min) > 60 BUN/Creatinine Ratio (7 - 25 %) 35.0 H Magnesium (1.6 - 2.3 mg/dL) 2.2 Microbiology Date/Time Procedure - Status Source Growth 07/21 154 Respiratory Culture - RES LOWER RESP 07/21 1540 Gram Stain - RES LOWER RESP 07/20 0255 Blood Culture - RES BLOOD 07/20 0255 Blood Culture - RES BLOOD 07/20 0035 Influenza Virus A & B Rapid Smear - COMP NASOPHARYN 07/19 2344 Respiratory Culture - CAN LOWER RESP Cancelled: SPECIMEN NOT RECEIVED IN LABORATORY 07/19 234 Gram Stain - CAN LOWER RESP Cancelled: SPECIMEN NOT RECEIVED IN LABORATORY 07/19 2323 Urine Culture - COMP URINE ROUT Impression/Plan Impression/Plan Impression/Plan: CT CHest IMPRESSION: 1. No pulmonary embolism. 2. Scattered bronchial filling defects in the lower lobes. Right middle lobe bronchial filling defect with right middle lobe collapse. This is suspicious for aspiration or mucous plugging. 3. Prior pulmonary nodules are either stable or obscured by lung atelectasis. VTE: negative DICTATED BY: NOEMI SHORT,GRAEME DATE/TIME DICTATED:07/20/16 1603 Physical Exam General Appearance Alert, Oriented X3, Cooperative, No Acute Distress Skin No Significant Lesion Skin Temp/Moisture Exam: Warm/Dry Sepsis Skin Exam (color): Normal for Ethnicity HEENT Atraumatic, EOMI, Mucous Membr. moist/pink Neck Supple Cardiovascular Regular Rate, Normal S1, Normal S2, No Murmurs Lungs Normal Air Movement, decreased breath sounds, no wheezing or rhonchi appreciated Abdomen Normal Bowel Sounds, Soft, there is LUQ, suprapubic, RUQ and RLQ pain and tenderness, villalobos sign is negative, there is left side CVA tenderness Neurological Normal Speech, Strength at 5/5 X4 Ext, Normal Tone, Sensation Intact, Cranial Nerves 3-12 NL Extremities No Edema, Normal Pulses Vascular Normal Pulses, Pulses Symmetrical This is a lady with very significant COPD with FEV1 of 1.0 L, previous osteoporosis, remote history of breast cancer, hypertension, GERD, significant mucous plug, right bundle branch block, recent antibiotics with levofloxacin, now has * Resolved Acute hypoxemic respiratory failure related to mucous plugging COPD exacerbation and ventilator perfusion mismatch * Significant COPD with recent bronchitis with mucous plugging with bilateral filling defect in both lower lobes especially in the right middle lobe with right middle lobe collapse with ventilator perfusion mismatch causing hypoxemia * Probable recent significant bronchitis which appears to be bacterial status post 5 days of antibiotics * End-stage COPD with exacerbation * Recent right bundle branch block. * Significant GERD with probable aspiration * Hypertension * Renal cysts RECOMMENDATION * Change abx to ceftin in am * Chest physical therapy with Mucomyst twice a day especially towards right middle lobe * Continue current medications * Change her to DuoNeb 3 times a day [id number] from albuterol * Continue corticosteroids 40 mg in am and wean off in 8 days - change to prednisone * Keep the head of bed elevated * Proton pump inhibitor by mouth daily Can be dcd in am with oxygen and inhalers, and a nebulizer
--- NOTE | 2016-07-22 13:48 | PN- Housestaff ---
Subjective Follow-up For: COPD exacerbation New onset RBBB Complaints: no complaints Subjective: Patient seen and examined at bedside. Resting comfortably in chair. Feeling better overall. Endorses persistent cough but improved shortness of breath. Denies any chest pain, palpitations, lightheadedness, dizziness, abdominal pain, n/v/c/d. No events reported overnight. vitals stable. on 2l saturating at 93% Review of Systems Constitutional: Denies: chills, fever. Objective Last 24 Hrs of Vital Signs/I&O Vital Signs Date Time Temp Pulse Resp B/P B/P Pulse O2 O2 Flow FiO2 Mean Ox Delivery Rate 07/22 1442 97.4 86 20 124/68 93 07/22 0817 93 Nasal 2.0L Cannula 07/22 0800 92 Nasal 2.0L Cannula 07/22 0627 98.2 88 20 130/60 92 Nasal 2.0L Cannula 07/22 0000 Nasal 2.0L Cannula 07/21 2239 98.4 84 20 102/60 91 Nasal Cannula 07/21 1939 98.5 108 20 140/70 93 Room Air 07/21 1638 94 Nasal 2.0L Cannula 07/21 1623 97.5 88 20 130/74 94 Nasal 2.0L Cannula 07/21 1600 94 Nasal 2.0L Cannula Intake & Output 07/22 1600 07/22 0800 07/22 0000 Intake Total 600 120 540 Output Total Balance 600 120 540 Intake, IV 300 Intake, Oral 600 120 240 Physical Exam General Appearance: Alert, Oriented X3, Cooperative, No Acute Distress Skin: No Rashes, No Breakdown HEENT: Atraumatic, PERRLA, EOMI, Mucous Membr. moist/pink Neck: Supple, No JVD, No thryomegaly Lymphatic: Cervical nl Cardiovascular: Normal S1, Normal S2 Lungs: Normal Air Movement, dec breath sounds Abdomen: Normal Bowel Sounds, Soft, No Tenderness Extremities: No Clubbing, No Cyanosis, No Edema, Normal Pulses Vascular: Normal Pulses, Pulses Symmetrical Current Medications: Current Medications Sig/Haroon Start time Last Medication Dose Route Stop Time Status Admin Acetaminophen 650 MG Q6P PRN 07/19 2300 AC PO Acetaminophen 1,000 MG Q6P PRN 07/19 2300 AC IV Acetylcysteine 2 ML BID 07/21 1000 AC 07/22 INH 0814 Albuterol Sulfate 3 ML EVERY 4 HRS/AWAKE 07/21 1200 AC 07/22 INH 1252 Azithromycin 500 MG 2200 07/20 2200 AC 07/21 Sodium Chloride 250 ML IV 07/220 2115 Ceftriaxone Sodium 1,000 MG DAILY 07/21 1000 AC 07/22 IV 07/22 2300 0941 Cefuroxime Sodium 250 MG Q12 07/23 1000 AC PO Docusate Sodium 100 MG DAILY NEEDED PRN 07/22 1200 AC PO Enoxaparin Sodium 30 MG DAILY 07/20 1000 AC 07/22 SC 0941 Guaifenesin/Codeine 10 ML Q6P PRN 07/20 1115 AC 07/21 Phosphate PO 2153 Methylprednisolone 30 MG Q12 07/21 1000 AC 07/22 IV 07/22 2300 0941 Morphine Sulfate 0.5 MG Q4P PRN 07/19 2300 AC IV Omeprazole 20 MG DAILY AC 07/21 0930 AC 07/22 PO 0614 Patient Medication 1 ED .STK-MED ONE 07/22 1409 DE Teaching ED 07/22 1410 Polyethylene Glycol 17 GM DAILY PRN 07/22 1200 AC 07/22 PO 1436 Prednisone 40 MG DAILY 07/23 1000 AC PO Senna/Docusate Sodium 2 TAB DAILY PRN 07/22 1200 AC 07/22 PO 1437 Last 24 Hrs of Lab/Bayron Results Last 24 Hrs of Labs/Mics: Laboratory Tests 07/22/16 0615: Anion Gap 14, Estimated GFR > 60, BUN/Creatinine Ratio 35.0 H, Magnesium 2.2 Microbiology 07/21 1540 LOWER RESP: Respiratory Culture - RES 07/21 1540 LOWER RESP: Gram Stain - RES Assessment/Plan Assessment: Patient is a 85 year-old lady with PMH of HTN, emphysema, arthritis, GERD who has come to the ED after 7 days of constant, worsening upper respiratory symptoms and generalized weakness. Patient is found to have some new findings in the EKG including new RBBB and T wave inversions in precordial leads (V2-V6). Patient is admitted to telemetry for close monitoring and to rule out arrhythmias. # Acute hypoxic resp failure - resolved Most likely 2/2 COPD exacerbation with mucous plugging and a component of recent bronchitis. CXR showed bibasilar linear opacities concerning for atelectasis. Flu test negative for influenza A&B. No fever and leukocytosis. Patient has a history of emphysema, not on home O2 (takes Breo at home). Patient was satting below 90%, requiring upto 5 liters of oxygen on admission. * O2 supplementation as needed to keep SO2>92% * TRC/Nebs as needed * Decrease IV solumedrol to 40 mg Q12 * Cont Azithromycin 500 mg IV and ceftriaxone * needs home oxygen * Sputum culture and blood culture- f/u * CTA to r/o PE- no pe # New EKG changes EKG revealed new RBBB, denies any chest pain and palpitation, troponin <0.01 * Serial troponin and EKG- normal * Continuous EKG monitoring * Appreciate cardio recs Possible UTI/kidney stone Has CVA tenderness, UA is negative, currently afebrile, normal WBC count * Urine culture sent, will follow * Kidney ultrasound - no signs of pyelonephritis History of HTN * continue lisinopril, amlodipine History of GERD * continue lansoprazole mild pain pathway DVT px Lovenox SC Diet regular FC Problem List: 1. Hypoxia 2. COPD exacerbation Pain Ratin Pain Location: n/a Pain Goal: Remain pain free Pain Plan: tylinol Tomorrow's Labs & Rationales: none
[2016-07-22] MEDS ORDERED: CEFUROXIME250 M1 PO (14:13)
[2016-07-22] MEDS ORDERED: PROAIR HFA8.5 GM INH (14:13)
[2016-07-22] MEDS ORDERED: PREDNISONE10 M2 PO (14:13)
[2016-07-22] MEDS ORDERED: SYMBICORT 16010.2 GM INH (14:13)
[2016-07-22] MEDS ORDERED: SPIRIVA18 MCG INH (14:13)
[2016-07-22] MEDS ORDERED: GUAIFENESIN AC473 M2 PO (14:19)
[2016-07-22 14:42] VITALS: BP 124/68
[2016-07-22 21:48] VITALS: BP 128/60
[2016-07-23 07:06] VITALS: BP 142/80
--- NOTE | 2016-07-23 08:43 | PN- Housestaff ---
Subjective Follow-up For: COPD exacerbation New onset RBBB Complaints: no complaints Subjective: Patient seen and examined at bedside. Resting comfortably in chair. Feeling better overall. Endorses persistent cough but improved shortness of breath. Denies any chest pain, palpitations, lightheadedness, dizziness, abdominal pain, n/v/c/d. No events reported overnight. vitals stable. on 2l saturating at 93% Review of Systems Constitutional: Denies: chills, diaphoresis, fever. Objective Last 24 Hrs of Vital Signs/I&O Vital Signs Date Time Temp Pulse Resp B/P B/P Pulse O2 O2 Flow FiO2 Mean Ox Delivery Rate 07/23 0830 93 Nasal 2.0L Cannula 07/23 0800 95 Nasal 2.0L Cannula 07/23 0706 97.4 78 16 142/80 94 Nasal Cannula 07/23 0000 Nasal 2.0L Cannula 07/22 2148 98.0 79 18 128/60 93 Nasal 3.0L Cannula 07/22 1725 92 Nasal 2.0L Cannula 07/22 1600 Nasal 2.0L Cannula 07/22 1442 97.4 86 20 124/68 93 Intake & Output 07/23 1600 07/23 0800 07/23 0000 Intake Total 200 604 Output Total Balance 200 604 Intake, IV 600 Intake, Oral 200 4 Number 1 Bowel Movements Patient 86.183 kg Weight Physical Exam General Appearance: Alert, Oriented X3, Cooperative, No Acute Distress Skin: No Rashes, No Breakdown HEENT: Atraumatic, PERRLA, EOMI Neck: Supple, No JVD Lymphatic: Cervical nl Cardiovascular: Normal S1, Normal S2 Lungs: Normal Air Movement Abdomen: Normal Bowel Sounds, Soft, No Tenderness Extremities: No Clubbing, No Cyanosis, No Edema Vascular: Normal Pulses Current Medications: Current Medications Sig/Haroon Start time Last Medication Dose Route Stop Time Status Admin Acetaminophen 650 MG Q6P PRN 07/19 2300 AC 07/23 PO 0923 Acetaminophen 1,000 MG Q6P PRN 07/19 2299 AC IV Acetylcysteine 2 ML BID 07/21 1000 AC 07/23 INH 0826 Albuterol Sulfate 3 ML EVERY 4 HRS/AWAKE 07/21 1200 AC 07/23 INH 0826 Azithromycin 500 MG 2200 07/200 DC 07/22 Sodium Chloride 250 ML IV 07/22 Ceftriaxone Sodium 1,000 MG DAILY 07/21 1000 DC 07/22 IV 07/22 2300 0941 Cefuroxime Sodium 250 MG Q12 07/23 1000 AC 07/23 PO 0922 Docusate Sodium 100 MG DAILY NEEDED PRN 07/22 1200 AC 07/23 PO 0922 Enoxaparin Sodium 30 MG DAILY 07/20 1000 AC 07/23 SC 0923 Guaifenesin/Codeine 10 ML Q6P PRN 07/20 1115 AC 07/23 Phosphate PO 0922 Methylprednisolone 30 MG Q12 07/21 1000 DC 07/22 IV 07/22 2300 2145 Morphine Sulfate 0.5 MG Q4P PRN 07/19 2300 AC IV Omeprazole 20 MG DAILY AC 07/21 0930 AC 07/23 PO 0655 Patient Medication 1 ED .STK-MED ONE 07/22 1409 DC Teaching ED 07/22 1410 Polyethylene Glycol 17 GM DAILY PRN 07/22 1200 AC 07/22 PO 1436 Prednisone 40 MG DAILY 07/23 1000 AC 07/23 PO 0922 Senna/Docusate Sodium 2 TAB DAILY PRN 07/22 1200 AC 07/22 PO 1437 Assessment/Plan Assessment: Patient is a 85 year-old lady with PMH of HTN, emphysema, arthritis, GERD who has come to the ED after 7 days of constant, worsening upper respiratory symptoms and generalized weakness. Patient is found to have some new findings in the EKG including new RBBB and T wave inversions in precordial leads (V2-V6). Patient is admitted to telemetry for close monitoring and to rule out arrhythmias. # Acute hypoxic resp failure - resolved Most likely 2/2 COPD exacerbation with mucous plugging and a component of recent bronchitis. CXR showed bibasilar linear opacities concerning for atelectasis. Flu test negative for influenza A&B. No fever and leukocytosis. Patient has a history of emphysema, not on home O2 (takes Breo at home). Patient was satting below 90%, requiring upto 5 liters of oxygen on admission. * O2 supplementation as needed to keep SO2>92% * TRC/Nebs as needed * oral prednisone 40mg today. Tapering 8 days * Discontinued Azithromycin 500 mg IV and ceftriaxone after 3days, started oral Ceftin today * needs home oxygen * Sputum culture and blood culture- f/u * CTA to r/o PE- no pe # New EKG changes EKG revealed new RBBB, denies any chest pain and palpitation, troponin <0.01 * Serial troponin and EKG- normal * Continuous EKG monitoring * Appreciate cardio recs Possible UTI/kidney stone Has CVA tenderness, UA is negative, currently afebrile, normal WBC count * Urine culture sent, will follow * Kidney ultrasound - no signs of pyelonephritis History of HTN * continue lisinopril, amlodipine History of GERD * continue lansoprazole mild pain pathway DVT px Lovenox SC Diet regular FC Problem List: 1. Bronchitis Pain Ratin Pain Location: n/a Pain Goal: Remain pain free Pain Plan: tylinol Tomorrow's Labs & Rationales: none
--- NOTE | 2016-07-23 13:17 | PN- Att Addend ---
Attending Addendum Attending Brief Note Mrs. Soto was interviewed and examined. Her EHR was reviewed. She remains afebrile with stable vital signs. Her oxygen saturation levels are in the mid 90s on 2 L via and these a cannula. At this time she is stable for discharge. Her CMR has been reviewed and signed. Follow-up appointments have been arranged.
[2016-07-23 16:01] VITALS: BP 120/60
--- NOTE | 2016-08-03 16:32 | Discharge Summary ---
Visit Information Visit Dates Admission Date: 07/19/16 Discharge Date: 07/23/16 Hospital Course Course Attending Physician: KELLY MILES MD Primary Care Physician: VILLA BARAJAS MD Consulting Request: Consulting Specialty: Cardiology Consulting Physician: Beltran Hall MD Hospital Course: 85 year-old lady with PMH of HTN, emphysema, arthritis, GERD who has come to the ED after 7 days of constant, worsening upper respiratory symptoms and generalized weakness. Patient is found to have some new findings in the EKG including new RBBB and T wave inversions in precordial leads (V2-V6). Patient was admitted to telemetry for close monitoring and to rule out arrhythmias. 1. Acute hypoxic resp failure Most likely secondary to COPD exacerbation with mucous plugging and a component of recent bronchitis. CXR showed bibasilar linear opacities concerning for atelectasis. Flu test negative for influenza A&B. She had no fever or leukocytosis to suggest pneumonia. Discontinued Azithromycin and ceftriaxone after 3days later and discharged on oral Ceftin with prednisone taper. Sputum culture was negative except for yeast. 2. New EKG changes EKG revealed new RBBB. Serial troponin and EKG was normal. Followed by cardiology who recommended echocardiogram and out patient follow-up. Echocardiogram was within normal limits. Allergies: Coded Allergies: NO KNOWN ALLERGIES (11/27/10) Significant Procedures: Echocardiogram CONCLUSIONS Normal left and right ventricular systolic function. No significant valvular abnormalities noted CT angiogram IMPRESSION: 1. No pulmonary embolism. 2. Scattered bronchial filling defects in the lower lobes. Right middle lobe bronchial filling defect with right middle lobe collapse. This is suspicious for aspiration or mucous plugging. 3. Prior pulmonary nodules are either stable or obscured by lung atelectasis. VTE: negative Renal ultrasound IMPRESSION: Bilateral renal cysts. A complex septated cyst is visualized in midpole right kidney. There are no echogenic calculi or hydronephrosis. Normal bilateral ureteral jets are seen in the bladder. Disposition Summary Disposition Principal Diagnosis: acute bronchitis Additional Diagnosis: new onset right bundle branch block Discharge Disposition: home or self care Discharge Instructions General Discharge Information Code Status: Full Code Patient's Diet: heart and healthy diet Patient's Activity: as tolerated Follow-Up Instructions/Appts: follow-up with cardiology as outpatient Medications at Discharge Discharge Medications: Continue taking these medications: Lisinopril (Lisinopril) 40 MG TABLET 1 Tablet ORAL DAILY Qty = 90 Comments: Last Taken: NOT GIVEN Time: Lansoprazole (Lansoprazole) 30 MG CAPSULE.DR 1 Capsule ORAL DAILY Qty = 30 Comments: Last Taken: 07/23/16 Time: 0620 AM Amlodipine Besylate (Amlodipine Besylate) 5 MG TABLET 1 Tablet ORAL DAILY Qty = 90 Comments: Last Taken: NOT GIVEN Time: Start taking the following new medications: Cefuroxime Axetil (Cefuroxime) 250 MG TABLET 1 Tablet ORAL EVERY 12 HOURS Qty = 4 No Refills Comments: Last Taken: 07/23 Time: 0922 AM Codeine Phosphate/Guaifenesi (Guaifenesin AC Cough Syrup) 10 MG-100 MG/5 ML LIQUID 10 Milliliters ORAL EVERY SIX HOURS NEEDED as needed for COUGH Qty = 1 No Refills Comments: Last Taken: 07/23 Time: 0922 AM Prednisone (Prednisone) 10 MG TABLET 1 Tablet ORAL See Instructions Qty = 20 No Refills Instructions: take 4pills for 2days 3pills for 2days 2pills for 2days take 1pill for 2days then stop prednisone Comments: Last Taken: 07/23 Time: 0922 AM Budesonide/Formoterol Fumarate (Symbicort 160-4.5 Mcg Inhaler) 160 MCG-4.5 MCG/ ACTUATION HFA.AER.AD 2 Puff Inhale through mouth TWICE DAILY Qty = 1 No Refills Comments: Last Taken: NOT GIVEN Time: Tiotropium Homer (Spiriva) 18 MCG CAP.W.DEV 1 Capsule Inhale through mouth DAILY Qty = 30 No Refills Comments: Last Taken: NOT GIVEN Time: Albuterol Sulfate (Proair Hfa) 90 MCG HFA.AER.AD 2 Puff Inhale through mouth EVERY 4-6 HOURS NEEDED as needed for copd Qty = 1 No Refills Comments: Last Taken: 07/23/16 Time: 1200 Copies To: MIKI SHORT,ISMAEL Attending MD Review Statement Documenting Attending: KELLY MILES MD
== END 2016-07-23 16:46 | DRG 190 ==
LOC: ERH 17:38 → 1NO 22:22 → ERHI 22:22 → 2NA 22:22 → ENRESERV 23:54 → 1NO 07-20 00:57 → 2NA 07-21 19:27 → ENPENDDIS 07-23 13:44 → 2NA 07-23 16:46
PROVIDERS: Internal Medicine; Physician Assistant Medical; ADMIT Internal Medicine
DX: J44.0 Chronic obstructive pulmonary disease with (acute) lower respiratory infection (principal); J96.01 Acute respiratory failure with hypoxia; N28.1 Cyst of kidney, acquired; I45.10 Unspecified right bundle-branch block; J44.1 Chronic obstructive pulmonary disease with (acute) exacerbation; J20.8 Acute bronchitis due to other specified organisms; I10 Essential (primary) hypertension; M19.90 Unspecified osteoarthritis, unspecified site; K21.9 Gastro-esophageal reflux disease without esophagitis; Z87.891 Personal history of nicotine dependence
CPT/HCPCS: 1NSP; 2NASP; ERO; 36415; 76775; 81001; 82436; 87040; 87070; 87071; 87086; 87804; 87804-59; 93005; 93010; 93306; 96374; J0131; J0456; J0696; J1650; J2920; J2930; J7040; J7608